=== PATIENT | male | born 1960 | race Caucasian/White ===

== ENCOUNTER 2022-04-27 19:19 | Emergency (ER) | payer OTHER ==
[~2022-04-27] VITALS: Ht 167.6 cm; Wt 81.6 kg
[~2022-04-27 19:19] MED LIST: APIX5TAB PO; ASPI-1197 PO; ATOR40TA71 PO; CILO50TA2 PO; CLOP75TA32 PO; DULO60CA64 PO; FENO48TA10 PO; INSLAN SQ; METF-444 PO; METO25 PO; OMEP-420 PO; PREG200C28 PO
[2022-04-27 19:56] LABS: APPEARANCE,URINE CLEAR (CLEAR); BILIRUBIN,URINE NEGATIVE (NEGATIVE); COLOR,URINE COLORLESS (YELLOW); GLUCOSE, URINE (UA) >=1000 mg/dL (NEGATIVE); KETONES,URINE NEGATIVE (NEGATIVE); LEUKOCYTE ESTERASE ,URINE 250 Leu/uL (NEGATIVE); NITRATE,URINE NEGATIVE (NEGATIVE); OCCULT BLOOD,URINE NEGATIVE (NEGATIVE); PH,URINE 5.5 (5.0-8.0); PROTEIN,URINE NEGATIVE (NEGATIVE); UROBILINOGEN,URINE 0.2 mg/dL (0.2-1.0)
[2022-04-27 19:58] LABS: BACTERIA,URINE RARE /HPF (None Seen)
[2022-04-27 20:04] LABS: BASOPHILS % (AUTO) 0.4 % (0.0-5.0); EOSINOPHILS % (AUTO) 0.9 % (0.0-8.0); HEMATOCRIT 40.4 % (42-54); LYMPHOCYTES % (AUTO) 23.5 % (21.0-51.0); MEAN CORPUSCULAR HEMOGLOBIN 27.6 pg (27.0-33.0); MEAN CORPUSCULAR HGB CONC 32.9 g/dL (32.0-36.0); MEAN CORPUSCULAR VOLUME 83.8 fL (79-99); MONOCYTES % (AUTO) 7.7 % (3.0-13.0); PLATELET COUNT (AUTO) 348 K/uL (130-400); RED BLOOD CELL COUNT(AUTO) 4.82 MIL/uL (4.50-6.20); WHITE BLOOD COUNT (AUTO) 13.1 K/uL (4.8-10.8)
[2022-04-27 20:22] LABS: ALBUMIN 3.4 g/dL (3.5-5.0); CREATININE 1.5 mg/dL (0.5-1.5); POTASSIUM 4.1 mmol/L (3.5-5.1); TOTAL PROTEIN, SERUM 7.5 g/dL (6.0-8.3)
[2022-04-27] MEDS ORDERED: 0.9%NACL 1000ML 2,000 ML IV ONE (20:30)
[2022-04-27] MEDS ORDERED: INSULIN HUMULIN R 100 UNIT/ML 3ML IV ONE (21:00)
[2022-04-27] MEDS ORDERED: CEFTRIAXONE 1G VIAL IVP ONE (22:30)
[2022-04-27] MEDS ORDERED: CEPH500B PO (22:33)
[2022-04-27 22:45] VITALS: BP 107/76
== END 2022-04-27 22:46 | disposition home or self-care (01) ==
LOC: EDH 19:19
DX: E11.65 Type 2 diabetes mellitus with hyperglycemia (principal); N39.0 Urinary tract infection, site not specified; E86.9 Volume depletion, unspecified; E78.00 Pure hypercholesterolemia, unspecified; I11.9 Hypertensive heart disease without heart failure; I48.91 Unspecified atrial fibrillation; Z79.899 Other long term (current) drug therapy; Z79.84 Long term (current) use of oral hypoglycemic drugs; Z79.82 Long term (current) use of aspirin; Z98.890 Other specified postprocedural states
CPT/HCPCS: 99284; 96374; 96361; 96375; 80053; 85025; 87088; 82948; 81001; 36415; J1815; J7030; J0696

== ENCOUNTER 2022-06-14 22:07 | Inpatient (IN) | payer OTHER ==
[~2022-06-14] VITALS: Ht 167.6 cm; Wt 75.4 kg
[~2022-06-14 22:07] MED LIST changes: +CEPH500B PO
[2022-06-14] MEDS ORDERED: VANCOMYCIN 1G/250ML KIT 250 ML IV ONE (22:26)
[2022-06-14] MEDS: CLINDAMYCIN IVPB 600MG/50ML 50 ML IV SCH ×2 (22:28→22:30)
[2022-06-14] MEDS ORDERED: MORPHINE 4 MG SYG IVP ONE ×2 (22:30)
[2022-06-14] MEDS ORDERED: CLINDAMYCIN IVPB 600MG/50ML 50 ML IV SCH (22:30)
[2022-06-14] MEDS ORDERED: VANCOMYCIN 1G VIAL IVPB ONE ×2 (22:30)
[2022-06-14] MEDS ORDERED: ONDANSETRON 4MG INJ IVP ONE ×2 (22:30)
[2022-06-14 22:32] LABS: BASOPHILS % (AUTO) 0.2 % (0.0-5.0); HEMATOCRIT 37.5 % (42-54); LYMPHOCYTES % (AUTO) 2.9 % (21.0-51.0); MEAN CORPUSCULAR HGB CONC 29.9 g/dL (32.0-36.0); MONOCYTES % (AUTO) 6.9 % (3.0-13.0); NEUTROPHILS % (AUTO) 89.1 % (40.0-77.0); PLATELET COUNT (AUTO) 302 K/uL (130-400); RED BLOOD CELL COUNT(AUTO) 4.31 MIL/uL (4.50-6.20); RED CELL DISTRIBUTION WIDTH 14.6 % (11.0-15.5); WHITE BLOOD COUNT (AUTO) 27.5 K/uL (4.8-10.8)
[2022-06-14 22:55] LABS: CREATININE 1.6 mg/dL (0.5-1.5); POTASSIUM 3.7 mmol/L (3.5-5.1)
[2022-06-14 23:00] LABS: ALBUMIN 2.7 g/dL (3.5-5.0); TOTAL PROTEIN, SERUM 6.5 g/dL (6.0-8.3)
[2022-06-14 23:02] LABS: APPEARANCE,URINE CLEAR (CLEAR); BILIRUBIN,URINE NEGATIVE (NEGATIVE); COLOR,URINE LIGHT-YELLOW (YELLOW); GLUCOSE, URINE (UA) >=1000 mg/dL (NEGATIVE); KETONES,URINE 150 mg/dL (NEGATIVE); LEUKOCYTE ESTERASE ,URINE NEGATIVE Leu/uL (NEGATIVE); NITRATE,URINE NEGATIVE (NEGATIVE); OCCULT BLOOD,URINE NEGATIVE (NEGATIVE); PROTEIN,URINE 20 mg/dL (NEGATIVE); UROBILINOGEN,URINE 0.2 mg/dL (0.2-1.0)
[2022-06-14 23:19] LABS: BACTERIA,URINE Rare /HPF (None Seen); RBC,URINE 0-1 /HPF (0-1); WBC,URINE 0-1 /HPF (0-1)
[2022-06-14 23:20] LABS: SQUAMOUS EPITHELIAL CELL,UR Few /HPF (0-2)
[2022-06-14 23:21] LABS: MUCUS,URINE Few LPF (None Seen)
[2022-06-14] MEDS ORDERED: 0.9% NACL 500ML IV.SOLN 500 ML IV SCH (23:30)
[2022-06-14] MEDS: 0.9%NACL 1000ML 1,000 ML IV SCH (23:34)
[2022-06-14 23:50] LABS: ABG HCO3 9.5 mmol/L (21.0-28.0); ABG OXYGEN SATURATION 91.7 % (95.0-99.0); ABG PCO2 23 mmHg (35-48)
[2022-06-15] VITALS (20 sets, daily range): BP systolic 93–170; BP diastolic 50–88
[2022-06-15] MEDS ORDERED: VANCOMYCIN PROTOCOL PER PHARMACY IV PRN
[2022-06-15] MEDS ORDERED: ACETAMINOPHEN 325 MG TAB PO PRN
[2022-06-15] MEDS ORDERED: ONDANSETRON 4MG INJ IV PRN
[2022-06-15] MEDS ORDERED: NITROGLYCERIN 0.4 MG SL TAB SL PRN
[2022-06-15] MEDS ORDERED: HYDROCODONE/ACETAMINOPHEN 5/325 MG TAB PO PRN
[2022-06-15] MEDS ORDERED: 0.9%NACL 1000ML 1,914 ML IV ONE
[2022-06-15] MEDS ORDERED: DEXTROSE 50%-WATER 50 ML DISP.SYRIN IV PRN
[2022-06-15] MEDS ORDERED: GLUCAGON 1MG KIT 1 MG ML IM PRN
[2022-06-15 00:07] LABS: INR 0.96 (0.85-1.15); PROTHROMBIN TIME 10.5 SEC (9.6-11.6)
[2022-06-15 00:09] LABS: PARTIAL THROMBOPLASTIN TIME 38.2 SEC (26.3-35.5)
[2022-06-15] MEDS: CEFTRIAXONE 1G VIAL IV SCH (00:31)
[2022-06-15] MEDS: 0.9%NACL 1000ML 1,000 ML IV SCH ×4 (00:32→18:02)
[2022-06-15 01:52] LABS: CREATININE 1.5 mg/dL (0.5-1.5); POTASSIUM 3.7 mmol/L (3.5-5.1)
[2022-06-15] MEDS: INSULIN HUMULIN R 100 UNIT/ML 3ML SQ SCH ×5 (01:53→20:59)
[2022-06-15] MEDS ORDERED: 0.9%NACL 1000ML 1,000 ML IV SCH ×2 (02:30→05:00)
[2022-06-15] MEDS ORDERED: SODIUM BICARB 8.4% 50ML SYRINGE IVP SCH ×2 (03:30→05:00)
[2022-06-15] MEDS ORDERED: SODIUM BICARB 50MEQ 50ML VIAL 50 ML ONE ×2 (03:32→04:46)
[2022-06-15 06:06] LABS: BASOPHILS % (AUTO) 0.2 % (0.0-5.0); EOSINOPHILS % (AUTO) 0.6 % (0.0-8.0); HEMATOCRIT 30.2 % (42-54); LYMPHOCYTES % (AUTO) 6.5 % (21.0-51.0); MEAN CORPUSCULAR HEMOGLOBIN 26.3 pg (27.0-33.0); MEAN CORPUSCULAR HGB CONC 30.8 g/dL (32.0-36.0); MEAN CORPUSCULAR VOLUME 85.3 fL (79-99); MONOCYTES % (AUTO) 9.1 % (3.0-13.0); NEUTROPHILS % (AUTO) 82.8 % (40.0-77.0); PLATELET COUNT (AUTO) 276 K/uL (130-400); RED BLOOD CELL COUNT(AUTO) 3.54 MIL/uL (4.50-6.20); RED CELL DISTRIBUTION WIDTH 14.6 % (11.0-15.5); WHITE BLOOD COUNT (AUTO) 22.8 K/uL (4.8-10.8)
[2022-06-15 06:25] LABS: CREATININE 1.3 mg/dL (0.5-1.5); MAGNESIUM 1.6 mg/dL (1.80-2.40); POTASSIUM 3.3 mmol/L (3.5-5.1); TOTAL PROTEIN, SERUM 5.7 g/dL (6.0-8.3)
[2022-06-15] MEDS ORDERED: HEPARIN 5,000 UNIT VIAL SQ SCH (09:00)
[2022-06-15] MEDS: FAMOTIDINE 20MG TAB PO SCH ×2 (09:28→21:12)
[2022-06-15] MEDS: HYDROCODONE/ACETAMINOPHEN 5/325 MG TAB PO PRN ×2 (09:28→14:18)
[2022-06-15] MEDS ORDERED: VANCOMYCIN 750MG VIAL IVPB SCH (12:30)
[2022-06-15] MEDS ORDERED: 0.9% NACL 250ML 250 ML IV SCH (12:30)
[2022-06-15] MEDS ORDERED: LIDOCAINE HCL-MPF 1% 2ML VIAL IV PRN (13:00)
[2022-06-15] MEDS: POTASSIUM CHLORIDE 10% ELIXIR 20 MEQ/15 ML UDCUP PO PRN ×2 (14:17→18:01)
[2022-06-15] MEDS: CLINDAMYCIN IVPB 600MG/50ML 50 ML IV SCH ×2 (14:18→23:47)
[2022-06-15] MEDS ORDERED: CLOPIDOGREL 300MG TAB PO ONE (18:00)
[2022-06-15] MEDS: MAGNESIUM 2GM PREMIX 50ML 50 ML IV PRN (18:02)
[2022-06-15] MEDS: SODIUM HYPOCHLORITE 0.25% [HALF STRENGTH] 473 ML TOPICAL SOLN TP SCH (21:00)
[2022-06-15] MEDS: VANCOMYCIN 750MG VIAL IVPB SCH (21:12)
[2022-06-15] MEDS ORDERED: METOPROLOL TARTRATE 1 MG/ML 5ML VIAL IV ONE ×2 (22:25→22:30)
[2022-06-15] MEDS ORDERED: 0.9% NACL 500ML IV.SOLN 500 ML IV SCH (22:30)
[2022-06-15] MEDS ORDERED: DILTIAZEM 50MG VIAL IV ONE ×2 (22:42→23:49)
[2022-06-15] MEDS ORDERED: CALCIUM GLUC 1GM 1 GM in 0.9%NACL 100ML 100 ML IV SCH (23:00)
[2022-06-15] MEDS ORDERED: DILTIAZEM 25MG INJ IVP ONE ×2 (23:00)
[2022-06-15] MEDS ORDERED: CALCIUM GLUC 1GM/10ML VIAL ONE (23:02)
[2022-06-15 23:27] LABS: POTASSIUM 3.7 mmol/L (3.5-5.1)
[2022-06-15] MEDS ORDERED: DILTIAZEM 125 MG/25 ML INJ 125 MG in 0.9%NACL 100ML 100 ML IV SCH (23:30)
[2022-06-16] VITALS (98 sets, daily range): BP systolic 67–200; BP diastolic 34–123
[2022-06-16] MEDS ORDERED: KCL 20 MEQ ERTAB PO ONE
[2022-06-16] MEDS: CEFTRIAXONE 1G VIAL IV SCH (00:04)
[2022-06-16] MEDS: 0.9%NACL 1000ML 1,000 ML IV SCH ×2 (00:14→16:00)
[2022-06-16] MEDS ORDERED: PHENYLEPHRINE HCL 10 MG/ML 1ML VIAL IV ONE ×3 (03:23→06:34)
[2022-06-16] MEDS ORDERED: PHENYLEPHRINE HCL 10 MG in 0.9% NACL 250ML 250 ML IV PRN (03:30)
[2022-06-16] MEDS ORDERED: 0.9% NACL 500ML IV.SOLN 500 ML IV SCH (03:30)
[2022-06-16] MEDS ORDERED: AMIODARONE 150MG VIAL 150 MG in DEXTROSE 5%-WATER 100 ML IV SCH (04:00)
[2022-06-16 04:21] LABS: BASOPHILS % (AUTO) 0.3 % (0.0-5.0); EOSINOPHILS % (AUTO) 0.1 % (0.0-8.0); HEMATOCRIT 34.6 % (42-54); LYMPHOCYTES % (AUTO) 4.6 % (21.0-51.0); MEAN CORPUSCULAR HEMOGLOBIN 26.1 pg (27.0-33.0); MEAN CORPUSCULAR HGB CONC 29.8 g/dL (32.0-36.0); MEAN CORPUSCULAR VOLUME 87.8 fL (79-99); MONOCYTES % (AUTO) 7.4 % (3.0-13.0); NEUTROPHILS % (AUTO) 86.8 % (40.0-77.0); PLATELET COUNT (AUTO) 292 K/uL (130-400); RED BLOOD CELL COUNT(AUTO) 3.94 MIL/uL (4.50-6.20); RED CELL DISTRIBUTION WIDTH 15.2 % (11.0-15.5); WHITE BLOOD COUNT (AUTO) 23.9 K/uL (4.8-10.8)
[2022-06-16] MEDS ORDERED: ALBUMIN (HUMAN) 25% 100 ML IV ONE (04:21)
[2022-06-16] MEDS: ACETAMINOPHEN 325 MG TAB PO PRN (04:34)
[2022-06-16 04:50] LABS: POTASSIUM 4.1 mmol/L (3.5-5.1); TOTAL PROTEIN, SERUM 6.5 g/dL (6.0-8.3)
[2022-06-16] MEDS: HYDROCODONE/ACETAMINOPHEN 5/325 MG TAB PO PRN ×2 (05:37→08:12)
[2022-06-16] MEDS: CLINDAMYCIN IVPB 600MG/50ML 50 ML IV SCH ×3 (05:42→22:46)
[2022-06-16] MEDS: METOPROLOL TARTRATE 1 MG/ML 5ML VIAL IV PRN (05:46)
[2022-06-16] MEDS: INSULIN HUMULIN R 100 UNIT/ML 3ML SQ SCH ×4 (06:40→21:06)
[2022-06-16] MEDS ORDERED: ALBUMIN (HUMAN) 25% 100 ML IV SCH (07:25)
[2022-06-16] MEDS: METOPROLOL TARTRATE 25 MG TAB PO SCH ×2 (08:11→20:38)
[2022-06-16] MEDS: FAMOTIDINE 20MG TAB PO SCH ×2 (08:11→20:38)
[2022-06-16] MEDS: CLOPIDOGREL 75MG TAB PO SCH (08:11)
[2022-06-16] MEDS: ASPIRIN 81 MG EC TAB PO SCH (08:11)
[2022-06-16] MEDS ORDERED: ENOXAPARIN SODIUM 80 MG/0.8 ML SQ SCH (08:30)
[2022-06-16] MEDS: SODIUM HYPOCHLORITE 0.25% [HALF STRENGTH] 473 ML TOPICAL SOLN TP SCH (09:00)
[2022-06-16] MEDS: VANCOMYCIN 750MG VIAL IVPB SCH ×2 (09:19→20:37)
[2022-06-16] MEDS: ENOXAPARIN SODIUM 80 MG/0.8 ML SQ SCH ×2 (09:19→20:39)
[2022-06-16] MEDS ORDERED: LACTATED RINGERS 1000ML 1,914 ML IV SCH (11:30)
[2022-06-16] MEDS ORDERED: NOREPINEPHRIN 4MG/NS 250ML 250 ML IV ONE (12:10)
[2022-06-16] MEDS ORDERED: DEXMEDETOMIDINE 400MCG/NS100ML IV ONE (12:37)
[2022-06-16] MEDS ORDERED: IPRATROPIUM 0.5 MG/2.5 ML INH IH ONE (12:39)
[2022-06-16] MEDS ORDERED: AMIODARONE 900MG VIAL 360 MG in DEXTROSE 5%-WATER 200 ML IV SCH (13:00)
[2022-06-16] MEDS ORDERED: AMIODARONE 900MG VIAL 150 MG in DEXTROSE 5%-WATER 100 ML IV SCH (13:00)
[2022-06-16 13:02] LABS: ABG BASE EXCESS -25.8 mmol/L (-2.0-3.0); ABG HCO3 8.5 mmol/L (21.0-28.0); ABG OXYGEN SATURATION 98.6 % (95.0-99.0); ABG PCO2 55 mmHg (35-48)
[2022-06-16] MEDS ORDERED: SODIUM BICARB 50MEQ 50ML VIAL 300 ML ONE (13:03)
[2022-06-16] MEDS ORDERED: FENTANYL 2500MCG+NS 250ML 250 ML IV ONE (13:31)
[2022-06-16 15:31] LABS: ABG BASE EXCESS -15.4 mmol/L (-2.0-3.0); ABG HCO3 13.9 mmol/L (21.0-28.0); ABG OXYGEN SATURATION 97.2 % (95.0-99.0); ABG PCO2 47 mmHg (35-48)
[2022-06-16] MEDS ORDERED: SODIUM BICARB 50MEQ 50ML VIAL 100 ML ONE (15:46)
[2022-06-16] MEDS ORDERED: HONEY 1 APPL/ML TUBE TP SCH (16:00)
[2022-06-16 16:17] LABS: PROTHROMBIN TIME 10.9 SEC (9.6-11.6)
[2022-06-16 16:18] LABS: PARTIAL THROMBOPLASTIN TIME 32.9 SEC (26.3-35.5)
[2022-06-16] MEDS ORDERED: SODIUM BICARB 50MEQ 50ML VIAL IV ONE ×2 (16:30→17:30)
[2022-06-16] MEDS ORDERED: MIDAZOLAM 100MG-0.9% NS 100ML 100ML BAG IV PRN (18:00)
[2022-06-16] MEDS ORDERED: AMIODARONE 900MG VIAL 540 MG in DEXTROSE 5%-WATER 300 ML IV SCH (18:00)
[2022-06-16] MEDS ORDERED: PHENYLEPHRINE HCL 100 MG in 0.9% NACL 250ML 250 ML IV SCH (20:00)
[2022-06-16] MEDS ORDERED: 0.9% NACL 250ML 250 ML ONE (20:14)
[2022-06-16] MEDS: HONEY 1 APPL/ML TUBE TP SCH (20:39)
[2022-06-16 20:40] LABS: CREATININE 1.4 mg/dL (0.5-1.5); POTASSIUM 3.9 mmol/L (3.5-5.1)
[2022-06-16] MEDS: VASOPRESSIN 20 UNITS in 0.9%NACL 100ML 100 ML IV SCH (20:43)
[2022-06-17] VITALS (95 sets, daily range): BP systolic 95–138; BP diastolic 46–79
[2022-06-17] MEDS: CEFTRIAXONE 1G VIAL IV SCH (00:01)
[2022-06-17] MEDS ORDERED: FENTANYL 2500MCG+NS 250ML 250 ML IV ONE ×2 (03:18→21:55)
[2022-06-17] MEDS: VASOPRESSIN 20 UNITS in 0.9%NACL 100ML 100 ML IV SCH ×2 (04:08→12:52)
[2022-06-17 04:09] LABS: BASOPHILS % (AUTO) 0.3 % (0.0-5.0); EOSINOPHILS % (AUTO) 0.1 % (0.0-8.0); HEMATOCRIT 25.1 % (42-54); LYMPHOCYTES % (AUTO) 4.3 % (21.0-51.0); MEAN CORPUSCULAR HEMOGLOBIN 26.1 pg (27.0-33.0); MEAN CORPUSCULAR HGB CONC 29.9 g/dL (32.0-36.0); MEAN CORPUSCULAR VOLUME 87.5 fL (79-99); MONOCYTES % (AUTO) 8.7 % (3.0-13.0); NEUTROPHILS % (AUTO) 85.6 % (40.0-77.0); NUCLEATED RED BLOOD CELLS 0.1 % (0.0-0.19); PLATELET COUNT (AUTO) 259 K/uL (130-400); RED BLOOD CELL COUNT(AUTO) 2.87 MIL/uL (4.50-6.20); RED CELL DISTRIBUTION WIDTH 15.4 % (11.0-15.5)
[2022-06-17 04:28] LABS: ALBUMIN 1.6 g/dL (3.5-5.0); CREATININE 1.4 mg/dL (0.5-1.5); POTASSIUM 3.5 mmol/L (3.5-5.1); TOTAL PROTEIN, SERUM 5.2 g/dL (6.0-8.3)
[2022-06-17] MEDS: POTASSIUM CHLORIDE 20MEQ/100ML 100 ML IV PRN (05:10)
[2022-06-17] MEDS ORDERED: SODIUM BICARB 8.4% 50ML SYRINGE IVP SCH (06:00)
[2022-06-17] MEDS: CLINDAMYCIN IVPB 600MG/50ML 50 ML IV SCH ×3 (06:28→21:57)
[2022-06-17] MEDS: INSULIN HUMULIN R 100 UNIT/ML 3ML SQ SCH ×4 (06:38→21:30)
[2022-06-17 07:57] LABS: ABG BASE EXCESS -9.6 mmol/L (-2.0-3.0); ABG HCO3 14.7 mmol/L (21.0-28.0); ABG OXYGEN SATURATION 98.6 % (95.0-99.0); ABG PCO2 27 mmHg (35-48)
[2022-06-17] MEDS ORDERED: HYDROCORTISONE SOD SUCCINATE 100 MG/2 ML VIAL IV SCH (08:30)
[2022-06-17] MEDS ORDERED: PHARMACY COMMUNICATION MISC SCH (08:30)
[2022-06-17] MEDS: SODIUM BICARB 50MEQ 50ML VIAL 150 MEQ in DEXTROSE 5%-WATER 1,000 ML IV SCH ×2 (08:52→21:26)
[2022-06-17] MEDS: VANCOMYCIN 750MG VIAL IVPB SCH ×2 (08:52→21:28)
[2022-06-17] MEDS: FAMOTIDINE 20MG TAB PO SCH ×2 (08:53→21:29)
[2022-06-17] MEDS: ASPIRIN 81 MG EC TAB PO SCH (08:53)
[2022-06-17] MEDS: CLOPIDOGREL 75MG TAB PO SCH (09:02)
[2022-06-17] MEDS: ENOXAPARIN SODIUM 80 MG/0.8 ML SQ SCH ×2 (09:02→22:57)
[2022-06-17] MEDS: MIDAZOLAM 100MG-0.9% NS 100ML 100 ML IV SCH (09:03)
[2022-06-17 09:57] LABS: HEMATOCRIT 26.2 % (42-54)
[2022-06-17 10:36] LABS: CREATININE 1.4 mg/dL (0.5-1.5)
[2022-06-17] MEDS: IPRATROPIUM 0.5 MG/2.5 ML INH IH SCH ×3 (11:22→23:53)
[2022-06-17] MEDS: SODIUM CHLORIDE 3% FOR INHALATION 4 ML/AMP VIAL.NEB IH SCH ×3 (11:22→23:53)
[2022-06-17] MEDS: HONEY 1 APPL/ML TUBE TP SCH (11:23)
[2022-06-17] MEDS: HYDROCORTISONE SOD SUCCINATE 100 MG/2 ML VIAL IV SCH ×2 (12:27→17:23)
[2022-06-17] MEDS ORDERED: AMIODARONE 900MG VIAL 360 MG in DEXTROSE 5%-WATER 200 ML IV SCH (13:30)
[2022-06-17] MEDS ORDERED: AMIODARONE 900MG VIAL 150 MG in DEXTROSE 5%-WATER 100 ML IV SCH (13:30)
[2022-06-17 14:31] LABS: CREATININE 1.6 mg/dL (0.5-1.5); POTASSIUM 4.2 mmol/L (3.5-5.1)
[2022-06-17] MEDS: DIGOXIN 250 MCG/ML 2ML AMP IV SCH (16:41)
[2022-06-17] MEDS ORDERED: IOHEXOL 350 MG/ML 100ML INFUS..BTL IV ONE (20:09)
[2022-06-17] MEDS: AMIODARONE 900MG VIAL 540 MG in DEXTROSE 5%-WATER 300 ML IV SCH (22:00)
[2022-06-18] VITALS (73 sets, daily range): BP systolic 84–155; BP diastolic 51–103
[2022-06-18] MEDS: CEFTRIAXONE 1G VIAL IV SCH (00:48)
[2022-06-18] MEDS: HYDROCORTISONE SOD SUCCINATE 100 MG/2 ML VIAL IV SCH ×4 (00:49→17:08)
[2022-06-18] MEDS: DIGOXIN 250 MCG/ML 2ML AMP IV SCH ×3 (00:51→15:09)
[2022-06-18 04:17] LABS: ABG BASE EXCESS -0.2 mmol/L (-2.0-3.0); ABG HCO3 22.7 mmol/L (21.0-28.0); ABG OXYGEN SATURATION 99.3 % (95.0-99.0); ABG PCO2 33 mmHg (35-48)
[2022-06-18 05:26] LABS: BASOPHILS % (AUTO) 0.2 % (0.0-5.0); HEMATOCRIT 27.2 % (42-54); LYMPHOCYTES % (AUTO) 4.5 % (21.0-51.0); MEAN CORPUSCULAR HEMOGLOBIN 26.3 pg (27.0-33.0); MEAN CORPUSCULAR HGB CONC 31.3 g/dL (32.0-36.0); MEAN CORPUSCULAR VOLUME 84.2 fL (79-99); MONOCYTES % (AUTO) 5.6 % (3.0-13.0); NEUTROPHILS % (AUTO) 88.9 % (40.0-77.0); PLATELET COUNT (AUTO) 280 K/uL (130-400); RED BLOOD CELL COUNT(AUTO) 3.23 MIL/uL (4.50-6.20); WHITE BLOOD COUNT (AUTO) 17.3 K/uL (4.8-10.8)
[2022-06-18 05:58] LABS: ALBUMIN 1.7 g/dL (3.5-5.0); CREATININE 1.6 mg/dL (0.5-1.5); POTASSIUM 3.4 mmol/L (3.5-5.1); TOTAL PROTEIN, SERUM 5.6 g/dL (6.0-8.3)
[2022-06-18] MEDS: SODIUM CHLORIDE 3% FOR INHALATION 4 ML/AMP VIAL.NEB IH SCH ×3 (06:00→23:59)
[2022-06-18] MEDS: IPRATROPIUM 0.5 MG/2.5 ML INH IH SCH ×2 (06:00→18:32)
[2022-06-18 06:01] LABS: B-TYPE NATRIURETIC PEPTIDE 779 pg/mL (0-100)
[2022-06-18] MEDS: POTASSIUM CHLORIDE 10% ELIXIR 20 MEQ/15 ML UDCUP PO PRN ×2 (06:35→13:54)
[2022-06-18] MEDS: INSULIN HUMULIN R 100 UNIT/ML 3ML SQ SCH ×4 (06:36→20:08)
[2022-06-18] MEDS: ACETAMINOPHEN 325 MG TAB PO PRN (06:36)
[2022-06-18] MEDS: CLINDAMYCIN IVPB 600MG/50ML 50 ML IV SCH ×3 (06:37→22:53)
[2022-06-18] MEDS: ENOXAPARIN SODIUM 80 MG/0.8 ML SQ SCH (07:25)
[2022-06-18] MEDS: CLOPIDOGREL 75MG TAB PO SCH (07:25)
[2022-06-18] MEDS: ASPIRIN 81 MG EC TAB PO SCH (07:43)
[2022-06-18] MEDS: OSELTAMIVIR PHOSPHATE 75 MG CAP PO SCH ×2 (07:43→20:07)
[2022-06-18] MEDS: DEXTROSE 5%-LACTATED RINGERS 1,000 ML IV SCH ×2 (07:43→16:26)
[2022-06-18] MEDS: FAMOTIDINE 20MG TAB PO SCH ×2 (07:44→20:07)
[2022-06-18] MEDS: HONEY 1 APPL/ML TUBE TP SCH (07:45)
[2022-06-18] MEDS: VANCOMYCIN 750MG VIAL IVPB SCH ×2 (07:50→20:07)
[2022-06-18] MEDS: AMIODARONE 900MG VIAL 540 MG in DEXTROSE 5%-WATER 300 ML IV SCH (08:07)
[2022-06-18] MEDS ORDERED: EPINEPHRINE PF 1MG (1:1,000) 1 MG/ML AMP ONE (08:51)
[2022-06-18] MEDS ORDERED: VASOPRESSIN 20 UNITS/ML 1ML VIAL ONE (08:51)
[2022-06-18] MEDS ORDERED: SODIUM BICARB 50MEQ 50ML VIAL 200 ML ONE (08:51)
[2022-06-18] MEDS ORDERED: ALBUMIN (HUMAN) 5% 500 ML IV ONE (08:52)
[2022-06-18] MEDS ORDERED: ROCURONIUM 10MG/1ML SYR 10 MG/ML ML ONE ×2 (10:56→12:46)
[2022-06-18] MEDS ORDERED: FENTANYL CITRATE PF 50 MCG/1 ML 2ML VIAL ONE (10:56)
[2022-06-18] MEDS ORDERED: PROPOFOL 10 MG/ML 20ML VIAL IV ONE (10:56)
[2022-06-18] MEDS ORDERED: MIDAZOLAM HCL 1 MG/ML 2ML VIAL ONE (10:56)
[2022-06-18 13:03] LABS: ABG BASE EXCESS 6.3 mmol/L (-2.0-3.0); ABG HCO3 30.7 mmol/L (21.0-28.0); ABG OXYGEN SATURATION 92.8 % (95.0-99.0); ABG PCO2 44 mmHg (35-48)
[2022-06-18] MEDS: MIDAZOLAM 100MG-0.9% NS 100ML 100 ML IV SCH (13:32)
[2022-06-18] MEDS: POTASSIUM CHLORIDE 20MEQ/100ML 100 ML IV PRN ×2 (13:46→15:00)
[2022-06-18 16:51] LABS: HEMATOCRIT 27.8 % (42-54); MEAN CORPUSCULAR HEMOGLOBIN 26.2 pg (27.0-33.0); MEAN CORPUSCULAR HGB CONC 30.6 g/dL (32.0-36.0); MEAN CORPUSCULAR VOLUME 85.5 fL (79-99); PLATELET COUNT (AUTO) 299 K/uL (130-400); RED BLOOD CELL COUNT(AUTO) 3.25 MIL/uL (4.50-6.20); RED CELL DISTRIBUTION WIDTH 15.2 % (11.0-15.5); WHITE BLOOD COUNT (AUTO) 18.1 K/uL (4.8-10.8)
[2022-06-18 16:59] LABS: CREATININE 1.5 mg/dL (0.5-1.5); POTASSIUM 4.1 mmol/L (3.5-5.1)
[2022-06-18] MEDS: VASOPRESSIN 20 UNITS in 0.9%NACL 100ML 100 ML IV SCH (17:04)
[2022-06-18] MEDS: FENTANYL 2500MCG+NS 250ML IV.SOLN IV SCH (17:08)
[2022-06-18 17:18] LABS: BAND NEUTROPHILS % (MANUAL) 1 % (0-2); LYMPHOCYTES % (MANUAL) 1 % (22-44); MAN.DIFF COMMENT-IMPRESSION MANUAL DIFFERENTIAL; MONOCYTES % (MANUAL) 6 % (2-9); SEGMENTED NEUTROPHILS % 92 % (40-70)
[2022-06-19] VITALS (93 sets, daily range): BP systolic 59–167; BP diastolic 27–119
[2022-06-19] MEDS: HYDROCORTISONE SOD SUCCINATE 100 MG/2 ML VIAL IV SCH ×5 (00:21→23:49)
[2022-06-19] MEDS: CEFTRIAXONE 1G VIAL IV SCH ×2 (00:21→23:49)
[2022-06-19] MEDS: DEXTROSE 5%-LACTATED RINGERS 1,000 ML IV SCH ×3 (00:30→23:49)
[2022-06-19] MEDS ORDERED: IOHEXOL 350 MG/ML 100ML INFUS..BTL IV ONE (02:30)
[2022-06-19 03:52] LABS: ABG BASE EXCESS 6.5 mmol/L (-2.0-3.0); ABG HCO3 29.2 mmol/L (21.0-28.0); ABG OXYGEN SATURATION 98.4 % (95.0-99.0); ABG PCO2 35 mmHg (35-48)
[2022-06-19 04:19] LABS: BASOPHILS % (AUTO) 0.1 % (0.0-5.0); HEMATOCRIT 28.5 % (42-54); MEAN CORPUSCULAR HEMOGLOBIN 25.9 pg (27.0-33.0); MEAN CORPUSCULAR HGB CONC 31.2 g/dL (32.0-36.0); MEAN CORPUSCULAR VOLUME 83.1 fL (79-99); MONOCYTES % (AUTO) 6.7 % (3.0-13.0); PLATELET COUNT (AUTO) 303 K/uL (130-400); RED BLOOD CELL COUNT(AUTO) 3.43 MIL/uL (4.50-6.20); RED CELL DISTRIBUTION WIDTH 14.7 % (11.0-15.5); WHITE BLOOD COUNT (AUTO) 14.8 K/uL (4.8-10.8)
[2022-06-19] MEDS: POTASSIUM CHLORIDE 20MEQ/100ML 100 ML IV PRN ×4 (04:29→17:49)
[2022-06-19] MEDS: POTASSIUM CHLORIDE 10% ELIXIR 20 MEQ/15 ML UDCUP PO PRN ×8 (04:46→22:25)
[2022-06-19] MEDS: CLINDAMYCIN IVPB 600MG/50ML 50 ML IV SCH ×3 (05:38→22:26)
[2022-06-19] MEDS: INSULIN HUMULIN R 100 UNIT/ML 3ML SQ SCH ×4 (05:39→20:53)
[2022-06-19 05:40] LABS: ALBUMIN 1.8 g/dL (3.5-5.0); CREATININE 1.3 mg/dL (0.5-1.5); TOTAL PROTEIN, SERUM 5.8 g/dL (6.0-8.3)
[2022-06-19 05:44] LABS: POTASSIUM 2.8 mmol/L (3.5-5.1)
[2022-06-19] MEDS: MIDAZOLAM 100MG-0.9% NS 100ML 100 ML IV SCH (06:24)
[2022-06-19] MEDS: IPRATROPIUM 0.5 MG/2.5 ML INH IH SCH ×5 (07:34→23:25)
[2022-06-19] MEDS: SODIUM CHLORIDE 3% FOR INHALATION 4 ML/AMP VIAL.NEB IH SCH ×4 (07:34→23:25)
[2022-06-19] MEDS: FAMOTIDINE 20MG TAB PO SCH ×2 (07:53→20:51)
[2022-06-19] MEDS: CLOPIDOGREL 75MG TAB PO SCH (07:53)
[2022-06-19] MEDS: OSELTAMIVIR PHOSPHATE 75 MG CAP PO SCH ×2 (07:53→20:51)
[2022-06-19] MEDS: FENTANYL 2500MCG+NS 250ML IV.SOLN IV SCH ×2 (07:53→22:27)
[2022-06-19] MEDS: ASPIRIN 81 MG EC TAB PO SCH (07:54)
[2022-06-19] MEDS: AMIODARONE 200 MG TABLET PO SCH ×2 (08:05→20:51)
[2022-06-19] MEDS: MIDODRINE HCL 5 MG TABLET PO SCH ×3 (09:12→20:51)
[2022-06-19] MEDS: BALSAM PERU/CASTOR OIL 60 GM TUBE TP SCH ×2 (09:44→20:52)
[2022-06-19] MEDS: VANCOMYCIN 1G/250ML KIT 250 ML IV SCH ×2 (09:54→20:52)
[2022-06-19] MEDS: DOCUSATE NA 100MG/10ML UDCUP PO SCH (10:58)
[2022-06-19] MEDS: ACETAMINOPHEN 325 MG/10.15ML UDCUP PO PRN (14:03)
[2022-06-19] MEDS: DIGOXIN 250 MCG/ML 2ML AMP IV SCH (15:29)
[2022-06-19] MEDS: VASOPRESSIN 20 UNITS in 0.9%NACL 100ML 100 ML IV SCH (16:29)
[2022-06-19] MEDS: HEPARIN 25,000 UNITS/250ML D5W 250 ML IV SCH (17:48)
[2022-06-19] MEDS ORDERED: HEPARIN 5,000 UNIT VIAL IV SCH (18:00)
[2022-06-19] MEDS ORDERED: 0.9% NACL 250ML 250 ML ONE (20:47)
[2022-06-20] VITALS (60 sets, daily range): BP systolic 76–194; BP diastolic 41–97
[2022-06-20] MEDS: POTASSIUM CHLORIDE 10% ELIXIR 20 MEQ/15 ML UDCUP PO PRN ×3 (01:19→06:47)
[2022-06-20] MEDS ORDERED: 0.9%NACL 1000ML 1,000 ML IV ONE (01:30)
[2022-06-20] MEDS: MIDAZOLAM 100MG-0.9% NS 100ML 100 ML IV SCH (02:35)
[2022-06-20 04:02] LABS: ABG BASE EXCESS 6.7 mmol/L (-2.0-3.0); ABG HCO3 30.7 mmol/L (21.0-28.0); ABG OXYGEN SATURATION 86.6 % (95.0-99.0); ABG PCO2 42 mmHg (35-48)
[2022-06-20] MEDS: HYDROCORTISONE SOD SUCCINATE 100 MG/2 ML VIAL IV SCH (05:39)
[2022-06-20] MEDS: CLINDAMYCIN IVPB 600MG/50ML 50 ML IV SCH ×3 (05:39→21:22)
[2022-06-20] MEDS: INSULIN HUMULIN R 100 UNIT/ML 3ML SQ SCH ×4 (05:40→21:20)
[2022-06-20 06:08] LABS: BASOPHILS % (AUTO) 0.2 % (0.0-5.0); HEMATOCRIT 28.5 % (42-54); LYMPHOCYTES % (AUTO) 6.9 % (21.0-51.0); MEAN CORPUSCULAR HEMOGLOBIN 26.3 pg (27.0-33.0); MEAN CORPUSCULAR VOLUME 79.8 fL (79-99); MONOCYTES % (AUTO) 6.1 % (3.0-13.0); PLATELET COUNT (AUTO) 341 K/uL (130-400); RED BLOOD CELL COUNT(AUTO) 3.57 MIL/uL (4.50-6.20); RED CELL DISTRIBUTION WIDTH 14.8 % (11.0-15.5); WHITE BLOOD COUNT (AUTO) 14.8 K/uL (4.8-10.8)
[2022-06-20 06:32] LABS: ALBUMIN 1.8 g/dL (3.5-5.0); POTASSIUM 3.8 mmol/L (3.5-5.1)
[2022-06-20] MEDS: SODIUM CHLORIDE 3% FOR INHALATION 4 ML/AMP VIAL.NEB IH SCH ×2 (06:35→11:44)
[2022-06-20] MEDS: IPRATROPIUM 0.5 MG/2.5 ML INH IH SCH ×4 (06:35→23:38)
[2022-06-20] MEDS ORDERED: DIAZEPAM 5 MG TABLET PO PRN (08:00)
[2022-06-20] MEDS: FAMOTIDINE 20MG TAB PO SCH ×2 (08:35→21:19)
[2022-06-20] MEDS: ASPIRIN 81 MG EC TAB PO SCH (08:35)
[2022-06-20] MEDS: AMIODARONE 200 MG TABLET PO SCH ×2 (08:35→21:18)
[2022-06-20] MEDS: VANCOMYCIN 1G/250ML KIT 250 ML IV SCH ×2 (08:36→21:16)
[2022-06-20] MEDS: OSELTAMIVIR PHOSPHATE 75 MG CAP PO SCH ×2 (08:36→21:17)
[2022-06-20] MEDS: MIDODRINE HCL 5 MG TABLET PO SCH ×3 (08:36→21:00)
[2022-06-20] MEDS: CLOPIDOGREL 75MG TAB PO SCH (08:36)
[2022-06-20] MEDS: KCL 20 MEQ ERTAB PO PRN ×2 (08:37→10:58)
[2022-06-20] MEDS: NICOTINE 21 MG/ 24 HR PATCH TD SCH (08:37)
[2022-06-20] MEDS: BALSAM PERU/CASTOR OIL 60 GM TUBE TP SCH ×2 (08:38→21:21)
[2022-06-20] MEDS: HEPARIN 25,000 UNITS/250ML D5W 250 ML IV SCH (10:01)
[2022-06-20] MEDS: LACTULOSE 20 GM/30 ML UDCUP PO PRN (10:59)
[2022-06-20] MEDS: DOCUSATE NA 100MG/10ML UDCUP PO SCH (11:00)
[2022-06-20 11:06] LABS: ABG BASE EXCESS 8.3 mmol/L (-2.0-3.0); ABG HCO3 33.2 mmol/L (21.0-28.0); ABG OXYGEN SATURATION 99.2 % (95.0-99.0); ABG PCO2 46 mmHg (35-48)
[2022-06-20] MEDS: DIAZEPAM 5 MG TABLET PO SCH ×2 (12:27→21:19)
[2022-06-20] MEDS: FENTANYL 2500MCG+NS 250ML IV.SOLN IV SCH ×2 (14:13→23:14)
[2022-06-20] MEDS: DIGOXIN 250 MCG/ML 2ML AMP IV SCH (15:23)
[2022-06-20] MEDS: DEXTROSE 5%-LACTATED RINGERS 1,000 ML IV SCH (16:08)
[2022-06-20] MEDS: DEXMEDETOMIDINE 400MCG/NS100ML IV SCH ×2 (17:13→23:13)
[2022-06-20] MEDS: SOLU-MEDROL 40MG VIAL IVP SCH (21:16)
[2022-06-20] MEDS ORDERED: HYDRALAZINE 20MG/ML VIAL ONE (22:52)
[2022-06-20] MEDS: CEFTRIAXONE 1G VIAL IV SCH (22:56)
[2022-06-20] MEDS ORDERED: LABETALOL 20MG VIAL IV PRN (23:00)
[2022-06-21] VITALS (45 sets, daily range): BP systolic 103–191; BP diastolic 53–94
[2022-06-21] MEDS: HYDRALAZINE 20MG/ML VIAL IV PRN ×2 (03:08→11:37)
[2022-06-21] MEDS: HEPARIN 25,000 UNITS/250ML D5W 250 ML IV SCH ×2 (03:14→19:34)
[2022-06-21 03:40] LABS: ABG HCO3 32.9 mmol/L (21.0-28.0); ABG OXYGEN SATURATION 97.1 % (95.0-99.0); ABG PCO2 46 mmHg (35-48)
[2022-06-21 04:08] LABS: BASOPHILS % (AUTO) 0.3 % (0.0-5.0); EOSINOPHILS % (AUTO) 0.2 % (0.0-8.0); HEMATOCRIT 30.9 % (42-54); LYMPHOCYTES % (AUTO) 8.5 % (21.0-51.0); MEAN CORPUSCULAR HEMOGLOBIN 26.3 pg (27.0-33.0); MEAN CORPUSCULAR HGB CONC 31.7 g/dL (32.0-36.0); MEAN CORPUSCULAR VOLUME 83.1 fL (79-99); NEUTROPHILS % (AUTO) 83.4 % (40.0-77.0); NUCLEATED RED BLOOD CELLS 0.1 % (0.0-0.19); PLATELET COUNT (AUTO) 383 K/uL (130-400); RED BLOOD CELL COUNT(AUTO) 3.72 MIL/uL (4.50-6.20); WHITE BLOOD COUNT (AUTO) 17.6 K/uL (4.8-10.8)
[2022-06-21] MEDS: DEXMEDETOMIDINE 400MCG/NS100ML IV SCH ×4 (04:14→20:43)
[2022-06-21] MEDS: DEXTROSE 5%-LACTATED RINGERS 1,000 ML IV SCH (04:15)
[2022-06-21 05:13] LABS: ALBUMIN 1.8 g/dL (3.5-5.0); CREATININE 0.8 mg/dL (0.5-1.5); DIGOXIN 0.91 ng/mL (0.50-2.00); MAGNESIUM 1.6 mg/dL (1.80-2.40); TOTAL PROTEIN, SERUM 6.2 g/dL (6.0-8.3)
[2022-06-21 05:32] LABS: CRP QUANTITATIVE 98.7 mg/L (0.00-9.0)
[2022-06-21] MEDS: CLINDAMYCIN IVPB 600MG/50ML 50 ML IV SCH ×3 (05:54→22:22)
[2022-06-21] MEDS: MAGNESIUM 2GM PREMIX 50ML 50 ML IV PRN (05:54)
[2022-06-21] MEDS: INSULIN HUMULIN R 100 UNIT/ML 3ML SQ SCH ×4 (06:03→21:44)
[2022-06-21] MEDS ORDERED: SODIUM CHLORIDE 3% FOR INHALATION 4 ML/AMP VIAL.NEB IH ONE ×2 (06:14→11:21)
[2022-06-21] MEDS: IPRATROPIUM 0.5 MG/2.5 ML INH IH SCH ×4 (06:39→23:10)
[2022-06-21] MEDS: DOCUSATE NA 100MG/10ML UDCUP PO SCH (07:37)
[2022-06-21] MEDS: MIDODRINE HCL 5 MG TABLET PO SCH (07:38)
[2022-06-21] MEDS: NICOTINE 21 MG/ 24 HR PATCH TD SCH (09:12)
[2022-06-21] MEDS: FAMOTIDINE 20MG TAB PO SCH ×2 (09:12→20:44)
[2022-06-21] MEDS: SOLU-MEDROL 40MG VIAL IVP SCH ×2 (09:12→20:43)
[2022-06-21] MEDS: VANCOMYCIN 1G/250ML KIT 250 ML IV SCH ×2 (09:12→21:04)
[2022-06-21] MEDS: CLOPIDOGREL 75MG TAB PO SCH (09:13)
[2022-06-21] MEDS: ASPIRIN 81 MG EC TAB PO SCH (09:13)
[2022-06-21] MEDS: AMIODARONE 200 MG TABLET PO SCH ×2 (09:13→20:44)
[2022-06-21] MEDS: METOPROLOL TARTRATE 25 MG TAB PO SCH ×2 (09:13→20:44)
[2022-06-21] MEDS: DIAZEPAM 5 MG TABLET PO SCH ×2 (09:13→20:44)
[2022-06-21] MEDS: OSELTAMIVIR PHOSPHATE 75 MG CAP PO SCH ×2 (09:13→20:44)
[2022-06-21] MEDS: BALSAM PERU/CASTOR OIL 60 GM TUBE TP SCH ×2 (09:14→21:05)
[2022-06-21] MEDS: INSULIN GLARGINE 100 UNITS/ML 10 ML VIAL SQ SCH ×2 (09:43→20:54)
[2022-06-21] MEDS: LACTATED RINGERS 1000ML 1,000 ML IV SCH ×2 (09:57→19:49)
[2022-06-21] MEDS: FENTANYL 2500MCG+NS 250ML IV.SOLN IV SCH (11:39)
[2022-06-21 14:39] LABS: INR 0.97 (0.85-1.15); PROTHROMBIN TIME 10.6 SEC (9.6-11.6)
[2022-06-21 14:40] LABS: PARTIAL THROMBOPLASTIN TIME 50.1 SEC (26.3-35.5)
[2022-06-21] MEDS: ACETAMINOPHEN 325 MG/10.15ML UDCUP PO PRN (16:07)
[2022-06-21 16:53] LABS: APPEARANCE,URINE CLEAR (CLEAR); BILIRUBIN,URINE NEGATIVE (NEGATIVE); COLOR,URINE LIGHT-YELLOW (YELLOW); GLUCOSE, URINE (UA) >=1000 mg/dL (NEGATIVE); KETONES,URINE 10 mg/dL (NEGATIVE); LEUKOCYTE ESTERASE ,URINE 25 Leu/uL (NEGATIVE); NITRATE,URINE NEGATIVE (NEGATIVE); OCCULT BLOOD,URINE LARGE (NEGATIVE); PH,URINE 6.5 (5.0-8.0); PROTEIN,URINE 20 mg/dL (NEGATIVE); UROBILINOGEN,URINE 0.2 mg/dL (0.2-1.0)
[2022-06-21 16:54] LABS: BACTERIA,URINE RARE /HPF (None Seen); MUCUS,URINE RARE LPF (None Seen); RBC,URINE 51-100 /HPF (0-1)
[2022-06-21 17:06] LABS: MAGNESIUM 2.1 mg/dL (1.80-2.40); POTASSIUM 3.8 mmol/L (3.5-5.1)
[2022-06-21 20:25] LABS: INR 0.98 (0.85-1.15); PROTHROMBIN TIME 10.7 SEC (9.6-11.6)
[2022-06-21 20:26] LABS: PARTIAL THROMBOPLASTIN TIME 38.7 SEC (26.3-35.5)
[2022-06-22] VITALS (30 sets, daily range): BP systolic 116–180; BP diastolic 51–87
[2022-06-22] MEDS: CEFTRIAXONE 1G VIAL IV SCH (00:23)
[2022-06-22] MEDS: FENTANYL 2500MCG+NS 250ML IV.SOLN IV SCH ×2 (00:24→20:17)
[2022-06-22] MEDS: DEXMEDETOMIDINE 400MCG/NS100ML IV SCH ×4 (00:53→18:18)
[2022-06-22] MEDS: ACETAMINOPHEN 325 MG/10.15ML UDCUP PO PRN ×2 (00:56→01:59)
[2022-06-22 02:33] LABS: BASOPHILS % (AUTO) 0.3 % (0.0-5.0); EOSINOPHILS % (AUTO) 0.2 % (0.0-8.0); LYMPHOCYTES % (AUTO) 4.5 % (21.0-51.0); MEAN CORPUSCULAR HEMOGLOBIN 25.9 pg (27.0-33.0); MEAN CORPUSCULAR HGB CONC 30.6 g/dL (32.0-36.0); MEAN CORPUSCULAR VOLUME 84.4 fL (79-99); NEUTROPHILS % (AUTO) 89.7 % (40.0-77.0); NUCLEATED RED BLOOD CELLS 0.3 % (0.0-0.19); PLATELET COUNT (AUTO) 307 K/uL (130-400); RED BLOOD CELL COUNT(AUTO) 3.79 MIL/uL (4.50-6.20); RED CELL DISTRIBUTION WIDTH 15.3 % (11.0-15.5); WHITE BLOOD COUNT (AUTO) 21.2 K/uL (4.8-10.8)
[2022-06-22 03:48] LABS: ABG BASE EXCESS 6.4 mmol/L (-2.0-3.0); ABG HCO3 30.2 mmol/L (21.0-28.0); ABG OXYGEN SATURATION 95.4 % (95.0-99.0); ABG PCO2 40 mmHg (35-48)
[2022-06-22] MEDS: CLINDAMYCIN IVPB 600MG/50ML 50 ML IV SCH (05:35)
[2022-06-22] MEDS: LACTATED RINGERS 1000ML 1,000 ML IV SCH ×2 (05:41→17:44)
[2022-06-22] MEDS: IPRATROPIUM 0.5 MG/2.5 ML INH IH SCH ×4 (06:51→23:01)
[2022-06-22] MEDS: ZOSYN 3.375GM +NS 50ML IVPB SCH ×3 (07:14→22:57)
[2022-06-22] MEDS: ASPIRIN 81 MG EC TAB PO SCH (07:56)
[2022-06-22] MEDS: CLOPIDOGREL 75MG TAB PO SCH (07:57)
[2022-06-22] MEDS: AMIODARONE 200 MG TABLET PO SCH (07:57)
[2022-06-22] MEDS: PREDNISONE 20 MG TABLET PO SCH (07:57)
[2022-06-22] MEDS: FAMOTIDINE 20MG TAB PO SCH ×2 (07:57→19:54)
[2022-06-22] MEDS: METOPROLOL TARTRATE 25 MG TAB PO SCH ×2 (07:57→20:00)
[2022-06-22] MEDS: OSELTAMIVIR PHOSPHATE 75 MG CAP PO SCH ×2 (07:57→19:54)
[2022-06-22] MEDS: DIAZEPAM 5 MG TABLET PO SCH (07:58)
[2022-06-22] MEDS: NICOTINE 21 MG/ 24 HR PATCH TD SCH (07:58)
[2022-06-22] MEDS: BALSAM PERU/CASTOR OIL 60 GM TUBE TP SCH ×2 (08:09→20:32)
[2022-06-22] MEDS: INSULIN HUMULIN R 100 UNIT/ML 3ML SQ SCH ×4 (08:11→19:56)
[2022-06-22] MEDS: INSULIN GLARGINE 100 UNITS/ML 10 ML VIAL SQ SCH ×2 (08:12→19:55)
[2022-06-22] MEDS: DOCUSATE NA 100MG/10ML UDCUP PO SCH (08:14)
[2022-06-22 08:40] LABS: BASOPHILS % (AUTO) 0.2 % (0.0-5.0); EOSINOPHILS % (AUTO) 0.1 % (0.0-8.0); HEMATOCRIT 27.3 % (42-54); LYMPHOCYTES % (AUTO) 8.1 % (21.0-51.0); MEAN CORPUSCULAR HEMOGLOBIN 25.7 pg (27.0-33.0); MEAN CORPUSCULAR HGB CONC 31.1 g/dL (32.0-36.0); MEAN CORPUSCULAR VOLUME 82.5 fL (79-99); MONOCYTES % (AUTO) 6.5 % (3.0-13.0); NEUTROPHILS % (AUTO) 83.7 % (40.0-77.0); NUCLEATED RED BLOOD CELLS 0.2 % (0.0-0.19); PLATELET COUNT (AUTO) 374 K/uL (130-400); RED BLOOD CELL COUNT(AUTO) 3.31 MIL/uL (4.50-6.20); RED CELL DISTRIBUTION WIDTH 15.1 % (11.0-15.5); WHITE BLOOD COUNT (AUTO) 19.6 K/uL (4.8-10.8)
[2022-06-22] MEDS: HEPARIN 25,000 UNITS/250ML D5W 250 ML IV SCH ×2 (09:25→20:31)
[2022-06-22 09:57] LABS: ALBUMIN 1.6 g/dL (3.5-5.0); CREATININE 0.7 mg/dL (0.5-1.5); TOTAL PROTEIN, SERUM 5.6 g/dL (6.0-8.3)
[2022-06-22 10:03] LABS: POTASSIUM 2.9 mmol/L (3.5-5.1)
[2022-06-22] MEDS: POTASSIUM CHLORIDE 20MEQ/100ML 100 ML IV PRN ×2 (10:22→12:28)
[2022-06-22] MEDS ORDERED: INSULIN HUMULIN R 100 UNIT/ML 3ML ONE (17:06)
[2022-06-22] MEDS ORDERED: METOPROLOL TARTRATE 25 MG TAB ONE (19:43)
[2022-06-22] MEDS ORDERED: OSELTAMIVIR PHOSPHATE 75 MG CAP ONE (19:44)
[2022-06-22] MEDS ORDERED: FAMOTIDINE 20MG TAB ONE (19:44)
[2022-06-22] MEDS ORDERED: POTASSIUM CHLORIDE 10% ELIXIR 20 MEQ/15 ML UDCUP ONE (19:45)
[2022-06-22] MEDS ORDERED: HEPARIN 25,000 UNITS/250ML D5W 250 ML IV ONE (19:46)
[2022-06-22] MEDS: POTASSIUM CHLORIDE 10% ELIXIR 20 MEQ/15 ML UDCUP PO PRN ×2 (19:54→20:11)
[2022-06-22] MEDS ORDERED: FENTANYL 2500MCG+NS 250ML 250 ML IV ONE (20:14)
[2022-06-22] MEDS ORDERED: ZOSYN 3.375GM+NS 50ML 50 ML IVPB ONE (22:54)
[2022-06-23] VITALS (34 sets, daily range): BP systolic 95–166; BP diastolic 44–99
[2022-06-23] MEDS ORDERED: DEXMEDETOMIDINE 400MCG/NS100ML IV ONE ×2 (00:01→06:07)
[2022-06-23] MEDS: DEXMEDETOMIDINE 400MCG/NS100ML IV SCH ×4 (00:04→21:44)
[2022-06-23 03:18] LABS: ABG BASE EXCESS 7.2 mmol/L (-2.0-3.0); ABG HCO3 30.6 mmol/L (21.0-28.0); ABG PCO2 39 mmHg (35-48)
[2022-06-23 04:22] LABS: BASOPHILS % (AUTO) 0.2 % (0.0-5.0); EOSINOPHILS % (AUTO) 1.7 % (0.0-8.0); HEMATOCRIT 27.5 % (42-54); MEAN CORPUSCULAR HEMOGLOBIN 26.1 pg (27.0-33.0); MEAN CORPUSCULAR HGB CONC 31.3 g/dL (32.0-36.0); MEAN CORPUSCULAR VOLUME 83.3 fL (79-99); MONOCYTES % (AUTO) 5.9 % (3.0-13.0); PLATELET COUNT (AUTO) 382 K/uL (130-400); RED CELL DISTRIBUTION WIDTH 15.2 % (11.0-15.5); WHITE BLOOD COUNT (AUTO) 18.5 K/uL (4.8-10.8)
[2022-06-23 04:52] LABS: CREATININE 0.7 mg/dL (0.5-1.5)
[2022-06-23] MEDS ORDERED: POTASSIUM CHLORIDE 10% ELIXIR 20 MEQ/15 ML UDCUP ONE (05:15)
[2022-06-23] MEDS ORDERED: POTASSIUM CHLORIDE 20MEQ/100ML 100 ML IV ONE ×2 (05:15→06:06)
[2022-06-23] MEDS: POTASSIUM CHLORIDE 10% ELIXIR 20 MEQ/15 ML UDCUP PO PRN (05:23)
[2022-06-23] MEDS: POTASSIUM CHLORIDE 20MEQ/100ML 100 ML IV PRN ×2 (05:24→06:14)
[2022-06-23] MEDS ORDERED: ZOSYN 3.375GM+NS 50ML 50 ML IVPB ONE (06:06)
[2022-06-23] MEDS ORDERED: HEPARIN 25,000 UNITS/250ML D5W 250 ML IV ONE (06:07)
[2022-06-23] MEDS: ZOSYN 3.375GM +NS 50ML IVPB SCH ×2 (06:08→14:37)
[2022-06-23] MEDS: INSULIN HUMULIN R 100 UNIT/ML 3ML SQ SCH ×4 (06:14→20:12)
[2022-06-23] MEDS: HEPARIN 25,000 UNITS/250ML D5W 250 ML IV SCH ×2 (06:23→22:59)
[2022-06-23] MEDS: IPRATROPIUM 0.5 MG/2.5 ML INH IH SCH ×4 (06:34→23:56)
[2022-06-23] MEDS: INSULIN GLARGINE 100 UNITS/ML 10 ML VIAL SQ SCH ×2 (07:56→20:36)
[2022-06-23] MEDS: AMIODARONE 200 MG TABLET PO SCH (08:09)
[2022-06-23] MEDS: CLOPIDOGREL 75MG TAB PO SCH (08:10)
[2022-06-23] MEDS: FAMOTIDINE 20MG TAB PO SCH ×2 (08:10→20:33)
[2022-06-23] MEDS: PREDNISONE 20 MG TABLET PO SCH (08:10)
[2022-06-23] MEDS: ASPIRIN 81 MG EC TAB PO SCH (08:10)
[2022-06-23] MEDS: METOPROLOL TARTRATE 25 MG TAB PO SCH ×2 (08:10→20:34)
[2022-06-23] MEDS: BALSAM PERU/CASTOR OIL 60 GM TUBE TP SCH (08:11)
[2022-06-23] MEDS: DIAZEPAM 5 MG TABLET PO SCH (08:11)
[2022-06-23] MEDS: NICOTINE 21 MG/ 24 HR PATCH TD SCH (09:23)
[2022-06-23] MEDS: ASCORBIC ACID 500 MG TAB PO SCH ×2 (11:14→20:33)
[2022-06-23] MEDS: LACTULOSE 20 GM/30 ML UDCUP PO PRN (16:37)
[2022-06-23] MEDS ORDERED: FENTANYL 2500MCG+NS 250ML 250 ML IV ONE (17:18)
[2022-06-23] MEDS ORDERED: FENTANYL 2500MCG+NS 250ML IV.SOLN IV SCH (17:30)
[2022-06-23] MEDS ORDERED: DIAZEPAM 5 MG TABLET PO PRN (18:30)
[2022-06-23] MEDS: HONEY 1 APPL/ML TUBE TP SCH (20:36)
[2022-06-23] MEDS ORDERED: VANCOMYCIN 1G VIAL IVPB ONE (21:00)
[2022-06-23] MEDS ORDERED: VANCOMYCIN PROTOCOL PER PHARMACY IV SCH (21:00)
[2022-06-23] MEDS ORDERED: VANCOMYCIN 1.5 GM/250 ML BAG 250 ML IV ONE (21:30)
[2022-06-23] MEDS: BUDESONIDE 0.5 MG/2 ML INH IH SCH (21:32)
[2022-06-23] MEDS: CHLORHEXIDINE GLUCONATE 473 ML MOUTHWASH MM SCH (21:39)
[2022-06-24] VITALS (29 sets, daily range): BP systolic 97–145; BP diastolic 50–74
[2022-06-24] MEDS: ZOSYN 3.375GM +NS 50ML IVPB SCH ×3 (00:13→15:52)
[2022-06-24] MEDS: CHLORHEXIDINE GLUCONATE 473 ML MOUTHWASH MM SCH ×4 (02:45→20:15)
[2022-06-24] MEDS: DEXMEDETOMIDINE 400MCG/NS100ML IV SCH ×4 (03:17→21:01)
[2022-06-24 04:00] LABS: HEMATOCRIT 26.2 % (42-54); MEAN CORPUSCULAR HGB CONC 31.7 g/dL (32.0-36.0); MEAN CORPUSCULAR VOLUME 82.1 fL (79-99); NUCLEATED RED BLOOD CELLS 0.1 % (0.0-0.19); RED BLOOD CELL COUNT(AUTO) 3.19 MIL/uL (4.50-6.20); RED CELL DISTRIBUTION WIDTH 15.7 % (11.0-15.5); WHITE BLOOD COUNT (AUTO) 17.8 K/uL (4.8-10.8)
[2022-06-24 04:11] LABS: CREATININE 0.7 mg/dL (0.5-1.5)
[2022-06-24] MEDS: POTASSIUM CHLORIDE 20MEQ/100ML 100 ML IV PRN (04:26)
[2022-06-24] MEDS: POTASSIUM CHLORIDE 10% ELIXIR 20 MEQ/15 ML UDCUP PO PRN ×3 (05:09→10:31)
[2022-06-24] MEDS: VANCOMYCIN 1.5 GM/250 ML BAG 250 ML IV SCH ×2 (06:20→17:50)
[2022-06-24] MEDS: INSULIN GLARGINE 100 UNITS/ML 10 ML VIAL SQ SCH ×2 (06:21→20:14)
[2022-06-24] MEDS: INSULIN HUMULIN R 100 UNIT/ML 3ML SQ SCH ×4 (06:22→23:39)
[2022-06-24] MEDS: BUDESONIDE 0.5 MG/2 ML INH IH SCH ×2 (06:35→18:31)
[2022-06-24] MEDS: IPRATROPIUM 0.5 MG/2.5 ML INH IH SCH ×4 (06:35→23:21)
[2022-06-24] MEDS: NICOTINE 21 MG/ 24 HR PATCH TD SCH (08:33)
[2022-06-24] MEDS: AMIODARONE 200 MG TABLET PO SCH (08:33)
[2022-06-24] MEDS: ASPIRIN 81 MG EC TAB PO SCH (08:33)
[2022-06-24] MEDS: METOPROLOL TARTRATE 25 MG TAB PO SCH ×2 (08:33→20:12)
[2022-06-24] MEDS: DIAZEPAM 5 MG TABLET PO SCH (08:33)
[2022-06-24] MEDS: ASCORBIC ACID 500 MG TAB PO SCH ×2 (08:33→20:12)
[2022-06-24] MEDS: FAMOTIDINE 20MG TAB PO SCH ×2 (08:33→20:12)
[2022-06-24] MEDS: CLOPIDOGREL 75MG TAB PO SCH (08:34)
[2022-06-24] MEDS: HONEY 1 APPL/ML TUBE TP SCH ×2 (08:34→20:15)
[2022-06-24] MEDS: PREDNISONE 10 MG TABLET PO SCH (10:23)
[2022-06-24] MEDS: FENTANYL 2500MCG+NS 250ML IV SCH (11:48)
[2022-06-24] MEDS: HEPARIN 25,000 UNITS/250ML D5W 250 ML IV SCH (16:00)
[2022-06-24] MEDS: ARTIFICIAL TEARS 3.5 GM OINTMENT OS SCH (20:30)
[2022-06-25] VITALS (51 sets, daily range): BP systolic 99–145; BP diastolic 52–78
[2022-06-25] MEDS: ZOSYN 3.375GM +NS 50ML IVPB SCH ×3 (00:21→15:41)
[2022-06-25] MEDS: CHLORHEXIDINE GLUCONATE 473 ML MOUTHWASH MM SCH ×4 (04:03→21:02)
[2022-06-25] MEDS: DEXMEDETOMIDINE 400MCG/NS100ML IV SCH ×3 (04:12→16:07)
[2022-06-25] MEDS: FENTANYL 2500MCG+NS 250ML IV SCH (04:36)
[2022-06-25 05:30] LABS: MEAN CORPUSCULAR HEMOGLOBIN 26.1 pg (27.0-33.0); MEAN CORPUSCULAR HGB CONC 30.7 g/dL (32.0-36.0); MEAN CORPUSCULAR VOLUME 84.9 fL (79-99); NUCLEATED RED BLOOD CELLS 0.3 % (0.0-0.19); RED BLOOD CELL COUNT(AUTO) 3.18 MIL/uL (4.50-6.20); RED CELL DISTRIBUTION WIDTH 16.2 % (11.0-15.5); WHITE BLOOD COUNT (AUTO) 15.7 K/uL (4.8-10.8)
[2022-06-25 05:48] LABS: CREATININE 1.1 mg/dL (0.5-1.5); POTASSIUM 3.7 mmol/L (3.5-5.1)
[2022-06-25] MEDS: INSULIN HUMULIN R 100 UNIT/ML 3ML SQ SCH ×3 (06:00→18:00)
[2022-06-25] MEDS: VANCOMYCIN 1.5 GM/250 ML BAG 250 ML IV SCH (06:00)
[2022-06-25] MEDS: BUDESONIDE 0.5 MG/2 ML INH IH SCH ×2 (06:23→18:28)
[2022-06-25] MEDS: IPRATROPIUM 0.5 MG/2.5 ML INH IH SCH ×4 (06:24→23:13)
[2022-06-25] MEDS ORDERED: PHARMACY COMMUNICATION MISC SCH (07:00)
[2022-06-25 07:07] LABS: ABG BASE EXCESS 4.2 mmol/L (-2.0-3.0); ABG HCO3 27.7 mmol/L (21.0-28.0); ABG OXYGEN SATURATION 95.9 % (95.0-99.0); ABG PCO2 37 mmHg (35-48)
[2022-06-25] MEDS: INSULIN GLARGINE 100 UNITS/ML 10 ML VIAL SQ SCH ×2 (07:30→21:04)
[2022-06-25] MEDS: CLOPIDOGREL 75MG TAB PO SCH (09:00)
[2022-06-25] MEDS: AMIODARONE 200 MG TABLET PO SCH (09:00)
[2022-06-25] MEDS: FAMOTIDINE 20MG TAB PO SCH ×2 (09:00→20:43)
[2022-06-25] MEDS: DIAZEPAM 5 MG TABLET PO SCH (09:00)
[2022-06-25] MEDS: ASPIRIN 81 MG EC TAB PO SCH (09:00)
[2022-06-25] MEDS: ASCORBIC ACID 500 MG TAB PO SCH ×2 (09:00→20:44)
[2022-06-25] MEDS: PREDNISONE 10 MG TABLET PO SCH (09:00)
[2022-06-25] MEDS: METOPROLOL TARTRATE 25 MG TAB PO SCH ×2 (09:00→20:43)
[2022-06-25] MEDS ORDERED: FUROSEMIDE 20MG VIAL IV SCH (10:00)
[2022-06-25] MEDS ORDERED: PROPOFOL 10 MG/ML 20ML VIAL IV ONE (10:08)
[2022-06-25] MEDS ORDERED: FENTANYL CITRATE PF 50 MCG/1 ML 2ML VIAL ONE ×2 (10:08→10:42)
[2022-06-25] MEDS ORDERED: EPHEDRINE SULFATE 50 MG/ML AMPULE ONE (10:09)
[2022-06-25] MEDS ORDERED: PHENYLEPHRINE HCL 10 MG/ML 1ML VIAL IV ONE (11:20)
[2022-06-25] MEDS: NICOTINE 21 MG/ 24 HR PATCH TD SCH (13:34)
[2022-06-25] MEDS: HONEY 1 APPL/ML TUBE TP SCH ×2 (15:36→20:44)
[2022-06-25] MEDS ORDERED: MORPHINE 2 MG SYG IVP PRN ×2 (20:30)
[2022-06-25] MEDS: ARTIFICIAL TEARS 3.5 GM OINTMENT OS SCH (20:43)
[2022-06-26] VITALS (31 sets, daily range): BP systolic 93–223; BP diastolic 62–108
[2022-06-26] MEDS: ZOSYN 3.375GM +NS 50ML IVPB SCH ×4 (00:53→23:59)
[2022-06-26] MEDS: INSULIN HUMULIN R 100 UNIT/ML 3ML SQ SCH ×4 (00:56→17:27)
[2022-06-26] MEDS: DEXMEDETOMIDINE 400MCG/NS100ML IV SCH ×3 (01:31→10:36)
[2022-06-26] MEDS: CHLORHEXIDINE GLUCONATE 473 ML MOUTHWASH MM SCH ×4 (04:33→21:16)
[2022-06-26 05:08] LABS: BASOPHILS % (AUTO) 0.2 % (0.0-5.0); EOSINOPHILS % (AUTO) 0.8 % (0.0-8.0); HEMATOCRIT 27.6 % (42-54); MEAN CORPUSCULAR HEMOGLOBIN 26.3 pg (27.0-33.0); MEAN CORPUSCULAR HGB CONC 30.4 g/dL (32.0-36.0); MEAN CORPUSCULAR VOLUME 86.3 fL (79-99); MONOCYTES % (AUTO) 6.6 % (3.0-13.0); NEUTROPHILS % (AUTO) 84.7 % (40.0-77.0); PLATELET COUNT (AUTO) 510 K/uL (130-400); RED CELL DISTRIBUTION WIDTH 16.7 % (11.0-15.5); WHITE BLOOD COUNT (AUTO) 17.4 K/uL (4.8-10.8)
[2022-06-26 05:26] LABS: ALBUMIN 1.7 g/dL (3.5-5.0); CREATININE 1.1 mg/dL (0.5-1.5); POTASSIUM 3.4 mmol/L (3.5-5.1); TOTAL PROTEIN, SERUM 5.9 g/dL (6.0-8.3); VANCOMYCIN LEVEL 10.7 mcg/mL (18.0-26.0)
[2022-06-26] MEDS: BUDESONIDE 0.5 MG/2 ML INH IH SCH ×2 (06:38→18:33)
[2022-06-26] MEDS: IPRATROPIUM 0.5 MG/2.5 ML INH IH SCH ×4 (06:38→23:28)
[2022-06-26] MEDS: INSULIN GLARGINE 100 UNITS/ML 10 ML VIAL SQ SCH ×2 (06:46→21:26)
[2022-06-26] MEDS: VANCOMYCIN 1G/250ML KIT 250 ML IV SCH ×2 (07:00→17:30)
[2022-06-26 07:11] LABS: ABG BASE EXCESS 5.7 mmol/L (-2.0-3.0); ABG OXYGEN SATURATION 93.9 % (95.0-99.0); ABG PCO2 34 mmHg (35-48)
[2022-06-26] MEDS: METOPROLOL TARTRATE 25 MG TAB PO SCH ×3 (09:00→20:56)
[2022-06-26] MEDS: AMIODARONE 200 MG TABLET PO SCH (09:42)
[2022-06-26] MEDS: ASPIRIN 81 MG EC TAB PO SCH (09:42)
[2022-06-26] MEDS: FAMOTIDINE 20MG TAB PO SCH ×2 (09:43→20:57)
[2022-06-26] MEDS: DIAZEPAM 5 MG TABLET PO SCH ×2 (09:43→21:18)
[2022-06-26] MEDS: CLOPIDOGREL 75MG TAB PO SCH (09:43)
[2022-06-26] MEDS: HONEY 1 APPL/ML TUBE TP SCH ×2 (09:44→21:16)
[2022-06-26] MEDS: PREDNISONE 10 MG TABLET PO SCH (09:51)
[2022-06-26] MEDS ORDERED: NYSTATIN 15 GM POWDER TP ONE (10:00)
[2022-06-26] MEDS: NICOTINE 21 MG/ 24 HR PATCH TD SCH (10:50)
[2022-06-26] MEDS: ASCORBIC ACID 500 MG TAB PO SCH ×2 (11:54→20:58)
[2022-06-26] MEDS: METOPROLOL TARTRATE 1 MG/ML 5ML VIAL IV PRN (15:24)
[2022-06-26] MEDS ORDERED: CLONIDINE HCL 0.1 MG TABLET PO PRN (15:30)
[2022-06-26] MEDS ORDERED: LISINOPRIL 10 MG TABLET PO SCH (15:40)
[2022-06-26] MEDS ORDERED: METOPROLOL TARTRATE 25 MG TAB PO SCH (16:00)
[2022-06-26 17:26] LABS: POTASSIUM 3.5 mmol/L (3.5-5.1)
[2022-06-26 17:29] LABS: INR 1.05 (0.85-1.15); PROTHROMBIN TIME 11.4 SEC (9.6-11.6)
[2022-06-26 17:30] LABS: PARTIAL THROMBOPLASTIN TIME 36.1 SEC (26.3-35.5)
[2022-06-26] MEDS ORDERED: HEPARIN 5,000 UNIT VIAL ONE (18:16)
[2022-06-26] MEDS: HEPARIN 25,000 UNITS/250ML D5W 250 ML IV SCH (20:48)
[2022-06-26] MEDS: PREGABALIN 100 MG CAPSULE PO SCH (20:55)
[2022-06-26] MEDS: LISINOPRIL 10 MG TABLET PO SCH (20:55)
[2022-06-26] MEDS: FENOFIBRATE NANOCRYSTALLIZED 48 MG TAB PO SCH (20:57)
[2022-06-26] MEDS: ARTIFICIAL TEARS 3.5 GM OINTMENT OS SCH (21:15)
[2022-06-26] MEDS: ATORVASTATIN 40 MG TABLET PO SCH (21:17)
[2022-06-27] VITALS (15 sets, daily range): BP systolic 102–191; BP diastolic 58–99
[2022-06-27 00:40] LABS: INR 1.07 (0.85-1.15); PROTHROMBIN TIME 11.6 SEC (9.6-11.6)
[2022-06-27 00:42] LABS: PARTIAL THROMBOPLASTIN TIME 52.9 SEC (26.3-35.5)
[2022-06-27] MEDS: INSULIN HUMULIN R 100 UNIT/ML 3ML SQ SCH ×5 (01:10→21:12)
[2022-06-27] MEDS: CHLORHEXIDINE GLUCONATE 473 ML MOUTHWASH MM SCH ×4 (05:29→21:17)
[2022-06-27] MEDS: BUDESONIDE 0.5 MG/2 ML INH IH SCH ×2 (06:11→18:47)
[2022-06-27] MEDS: IPRATROPIUM 0.5 MG/2.5 ML INH IH SCH ×4 (06:11→23:10)
[2022-06-27 07:32] LABS: HEMATOCRIT 29.8 % (42-54); MEAN CORPUSCULAR HEMOGLOBIN 25.8 pg (27.0-33.0); MEAN CORPUSCULAR HGB CONC 29.9 g/dL (32.0-36.0); MEAN CORPUSCULAR VOLUME 86.4 fL (79-99); RED BLOOD CELL COUNT(AUTO) 3.45 MIL/uL (4.50-6.20); RED CELL DISTRIBUTION WIDTH 17.5 % (11.0-15.5); WHITE BLOOD COUNT (AUTO) 18.1 K/uL (4.8-10.8)
[2022-06-27 07:46] LABS: INR 1.05 (0.85-1.15); PROTHROMBIN TIME 11.4 SEC (9.6-11.6)
[2022-06-27 07:48] LABS: PARTIAL THROMBOPLASTIN TIME 29.1 SEC (26.3-35.5)
[2022-06-27] MEDS: INSULIN GLARGINE 100 UNITS/ML 10 ML VIAL SQ SCH ×2 (07:50→21:12)
[2022-06-27] MEDS: ASPIRIN 81 MG EC TAB PO SCH (08:06)
[2022-06-27] MEDS: ZOSYN 3.375GM +NS 50ML IVPB SCH ×3 (08:06→23:40)
[2022-06-27] MEDS: CLOPIDOGREL 75MG TAB PO SCH (08:07)
[2022-06-27] MEDS: ASCORBIC ACID 500 MG TAB PO SCH ×2 (08:07→21:15)
[2022-06-27] MEDS: PREGABALIN 100 MG CAPSULE PO SCH ×2 (08:07→21:15)
[2022-06-27] MEDS: DIAZEPAM 5 MG TABLET PO SCH ×2 (08:07→21:00)
[2022-06-27] MEDS: METOPROLOL TARTRATE 25 MG TAB PO SCH ×2 (08:08→21:15)
[2022-06-27] MEDS: FENOFIBRATE NANOCRYSTALLIZED 48 MG TAB PO SCH ×2 (08:08→21:14)
[2022-06-27] MEDS: AMIODARONE 200 MG TABLET PO SCH (08:08)
[2022-06-27] MEDS: LISINOPRIL 10 MG TABLET PO SCH ×2 (08:08→21:15)
[2022-06-27] MEDS: NICOTINE 21 MG/ 24 HR PATCH TD SCH (08:08)
[2022-06-27] MEDS: FAMOTIDINE 20MG TAB PO SCH ×2 (08:08→21:15)
[2022-06-27 08:24] LABS: POTASSIUM 3.1 mmol/L (3.5-5.1)
[2022-06-27] MEDS ORDERED: HEPARIN 5,000 UNIT VIAL ONE (08:55)
[2022-06-27] MEDS: VANCOMYCIN 1G/250ML KIT 250 ML IV SCH ×2 (10:40→17:03)
[2022-06-27] MEDS: HEPARIN 25,000 UNITS/250ML D5W 250 ML IV SCH (10:58)
[2022-06-27] MEDS: POTASSIUM CHLORIDE 10% ELIXIR 20 MEQ/15 ML UDCUP PO PRN (11:44)
[2022-06-27] MEDS: HONEY 1 APPL/ML TUBE TP SCH ×2 (11:51→21:16)
[2022-06-27] MEDS ORDERED: POTASSIUM CHLORIDE 20 MEQ/100 ML BAG IV SCH (13:30)
[2022-06-27] MEDS: POTASSIUM CHLORIDE 20MEQ/100ML 100 ML IV PRN ×2 (13:47→14:44)
[2022-06-27 18:16] LABS: INR 1.05 (0.85-1.15); PROTHROMBIN TIME 11.4 SEC (9.6-11.6)
[2022-06-27 18:17] LABS: PARTIAL THROMBOPLASTIN TIME 72.1 SEC (26.3-35.5)
[2022-06-27] MEDS: ARTIFICIAL TEARS 3.5 GM OINTMENT OS SCH (21:00)
[2022-06-27] MEDS: ATORVASTATIN 40 MG TABLET PO SCH (21:16)
[2022-06-27] MEDS ORDERED: FUROSEMIDE 20MG VIAL IV ONE (23:00)
[2022-06-28] MEDS: CHLORHEXIDINE GLUCONATE 473 ML MOUTHWASH MM SCH ×3 (02:29→15:30)
[2022-06-28 03:40] VITALS: BP 142/74
[2022-06-28] MEDS: INSULIN HUMULIN R 100 UNIT/ML 3ML SQ SCH ×3 (05:46→16:36)
[2022-06-28] MEDS: VANCOMYCIN 1G/250ML KIT 250 ML IV SCH ×2 (06:10→17:40)
[2022-06-28] MEDS ORDERED: BUDESONIDE 0.5 MG/2 ML INH IH ONE (06:20)
[2022-06-28 06:46] LABS: HEMATOCRIT 27.6 % (42-54); MEAN CORPUSCULAR HEMOGLOBIN 25.7 pg (27.0-33.0); MEAN CORPUSCULAR HGB CONC 30.1 g/dL (32.0-36.0); MEAN CORPUSCULAR VOLUME 85.4 fL (79-99); RED BLOOD CELL COUNT(AUTO) 3.23 MIL/uL (4.50-6.20); RED CELL DISTRIBUTION WIDTH 17.6 % (11.0-15.5); WHITE BLOOD COUNT (AUTO) 17.1 K/uL (4.8-10.8)
[2022-06-28] MEDS: BUDESONIDE 0.5 MG/2 ML INH IH SCH ×2 (07:03→20:47)
[2022-06-28] MEDS: IPRATROPIUM 0.5 MG/2.5 ML INH IH SCH ×4 (07:03→23:38)
[2022-06-28 07:06] LABS: ALBUMIN 1.9 g/dL (3.5-5.0); CREATININE 1.2 mg/dL (0.5-1.5); TOTAL PROTEIN, SERUM 6.2 g/dL (6.0-8.3)
[2022-06-28 07:08] LABS: POTASSIUM 2.7 mmol/L (3.5-5.1)
[2022-06-28] MEDS: INSULIN GLARGINE 100 UNITS/ML 10 ML VIAL SQ SCH (07:30)
[2022-06-28 08:00] VITALS: BP 139/62
[2022-06-28] MEDS ORDERED: HEPARIN 5,000 UNIT VIAL IV SCH (08:00)
[2022-06-28] MEDS: ZOSYN 3.375GM +NS 50ML IVPB SCH ×2 (08:35→14:43)
[2022-06-28] MEDS: FAMOTIDINE 20MG TAB PO SCH (08:36)
[2022-06-28] MEDS: HONEY 1 APPL/ML TUBE TP SCH (08:36)
[2022-06-28] MEDS: FUROSEMIDE 40 MG TABLET PO SCH (08:37)
[2022-06-28] MEDS: LISINOPRIL 10 MG TABLET PO SCH ×2 (08:37→21:00)
[2022-06-28] MEDS: AMIODARONE 200 MG TABLET PO SCH (08:38)
[2022-06-28] MEDS: METOPROLOL TARTRATE 25 MG TAB PO SCH (08:38)
[2022-06-28] MEDS: DIAZEPAM 5 MG TABLET PO SCH (08:38)
[2022-06-28] MEDS: ASPIRIN 81 MG EC TAB PO SCH (08:38)
[2022-06-28] MEDS: FENOFIBRATE NANOCRYSTALLIZED 48 MG TAB PO SCH (08:39)
[2022-06-28] MEDS: NICOTINE 21 MG/ 24 HR PATCH TD SCH (08:39)
[2022-06-28] MEDS: CLOPIDOGREL 75MG TAB PO SCH (08:39)
[2022-06-28] MEDS: ASCORBIC ACID 500 MG TAB PO SCH (08:45)
[2022-06-28] MEDS: POTASSIUM CHLORIDE 20MEQ/100ML 100 ML IV PRN ×4 (08:50→12:55)
[2022-06-28] MEDS: PREGABALIN 100 MG CAPSULE PO SCH ×2 (09:31→21:00)
[2022-06-28] MEDS: ACETAMINOPHEN 325 MG TAB PO PRN (11:36)
[2022-06-28 12:00] VITALS: BP 131/73
[2022-06-28 16:00] VITALS: BP 120/69
[2022-06-28 20:02] VITALS: BP 105/53
[2022-06-28 21:07] LABS: INR 1.02 (0.85-1.15); PROTHROMBIN TIME 11.1 SEC (9.6-11.6)
[2022-06-28 21:08] LABS: PARTIAL THROMBOPLASTIN TIME 26.2 SEC (26.3-35.5)
[2022-06-29] MEDS: METOPROLOL TARTRATE 25 MG TAB PO SCH ×3 (00:06→22:16)
[2022-06-29] MEDS: APIXABAN 5 MG TABLET PO SCH ×3 (00:06→22:18)
[2022-06-29] MEDS: DIAZEPAM 5 MG TABLET PO SCH ×3 (00:12→22:17)
[2022-06-29] MEDS: FAMOTIDINE 20MG TAB PO SCH ×3 (00:13→22:15)
[2022-06-29] MEDS: ASCORBIC ACID 500 MG TAB PO SCH ×3 (00:13→22:15)
[2022-06-29] MEDS: FENOFIBRATE NANOCRYSTALLIZED 48 MG TAB PO SCH ×3 (00:13→22:15)
[2022-06-29] MEDS: ATORVASTATIN 40 MG TABLET PO SCH ×2 (00:14→22:14)
[2022-06-29] MEDS: ZOSYN 3.375GM +NS 50ML IVPB SCH ×3 (00:14→17:29)
[2022-06-29] MEDS: INSULIN GLARGINE 100 UNITS/ML 10 ML VIAL SQ SCH ×3 (00:17→22:24)
[2022-06-29] MEDS: INSULIN HUMULIN R 100 UNIT/ML 3ML SQ SCH ×5 (00:19→22:26)
[2022-06-29] MEDS: CHLORHEXIDINE GLUCONATE 473 ML MOUTHWASH MM SCH ×5 (00:20→22:18)
[2022-06-29 00:21] VITALS: BP 127/78
[2022-06-29] MEDS: HONEY 1 APPL/ML TUBE TP SCH ×3 (00:21→22:19)
[2022-06-29] MEDS: ARTIFICIAL TEARS 3.5 GM OINTMENT OS SCH ×2 (00:22→22:18)
[2022-06-29 04:36] VITALS: BP 149/71
[2022-06-29] MEDS: VANCOMYCIN 1G/250ML KIT 250 ML IV SCH (06:00)
[2022-06-29 06:28] LABS: BASOPHILS % (AUTO) 0.3 % (0.0-5.0); EOSINOPHILS % (AUTO) 1.4 % (0.0-8.0); HEMATOCRIT 25.4 % (42-54); LYMPHOCYTES % (AUTO) 11.9 % (21.0-51.0); MEAN CORPUSCULAR HEMOGLOBIN 26.5 pg (27.0-33.0); MEAN CORPUSCULAR HGB CONC 29.9 g/dL (32.0-36.0); MEAN CORPUSCULAR VOLUME 88.5 fL (79-99); MONOCYTES % (AUTO) 6.4 % (3.0-13.0); NEUTROPHILS % (AUTO) 79.5 % (40.0-77.0); RED BLOOD CELL COUNT(AUTO) 2.87 MIL/uL (4.50-6.20); RED CELL DISTRIBUTION WIDTH 17.9 % (11.0-15.5); WHITE BLOOD COUNT (AUTO) 14.7 K/uL (4.8-10.8)
[2022-06-29 06:31] LABS: PLATELET COUNT (AUTO) 718 K/uL (130-400)
[2022-06-29] MEDS: IPRATROPIUM 0.5 MG/2.5 ML INH IH SCH ×4 (06:32→23:49)
[2022-06-29] MEDS: BUDESONIDE 0.5 MG/2 ML INH IH SCH ×2 (06:32→19:20)
[2022-06-29 06:45] LABS: INR 1.05 (0.85-1.15); PROTHROMBIN TIME 11.4 SEC (9.6-11.6)
[2022-06-29 07:13] LABS: CREATININE 1.3 mg/dL (0.5-1.5); MAGNESIUM 2.1 mg/dL (1.80-2.40); POTASSIUM 3.8 mmol/L (3.5-5.1); TOTAL PROTEIN, SERUM 6.8 g/dL (6.0-8.3)
[2022-06-29 08:00] VITALS: BP 149/71
[2022-06-29] MEDS: 0.9%NACL 10ML VIAL IV SCH ×3 (08:00→16:00)
[2022-06-29] MEDS: NICOTINE 21 MG/ 24 HR PATCH TD SCH (09:36)
[2022-06-29] MEDS: LISINOPRIL 10 MG TABLET PO SCH ×2 (09:37→22:17)
[2022-06-29] MEDS: ASPIRIN 81 MG EC TAB PO SCH (09:37)
[2022-06-29] MEDS: CLOPIDOGREL 75MG TAB PO SCH (09:38)
[2022-06-29] MEDS: AMIODARONE 200 MG TABLET PO SCH (09:38)
[2022-06-29] MEDS: FUROSEMIDE 40 MG TABLET PO SCH (09:43)
[2022-06-29] MEDS: PREGABALIN 100 MG CAPSULE PO SCH ×2 (09:58→22:21)
[2022-06-29 12:00] VITALS: BP 158/80
[2022-06-29 14:16] LABS: % IRON SATURATION 14.8 % (30-44)
[2022-06-29] MEDS ORDERED: GLUCAGON 1MG KIT 1 MG ML IM PRN (15:00)
[2022-06-29] MEDS ORDERED: DEXTROSE 50%-WATER 50 ML DISP.SYRIN IV PRN (15:00)
[2022-06-29 16:00] VITALS: BP 154/95
[2022-06-29] MEDS: ACETAMINOPHEN 325 MG TAB PO PRN (18:01)
[2022-06-29 19:15] VITALS: BP 141/73
[2022-06-29] MEDS: MEROPENEM 1 GM VIAL IVP SCH (22:14)
[2022-06-30 00:15] VITALS: BP 131/77
[2022-06-30] MEDS: 0.9%NACL 10ML VIAL IV SCH ×4 (00:38→23:31)
[2022-06-30] MEDS: CHLORHEXIDINE GLUCONATE 473 ML MOUTHWASH MM SCH ×4 (03:03→20:54)
[2022-06-30 03:15] VITALS: BP 137/74
[2022-06-30 04:20] LABS: BASOPHILS % (AUTO) 0.2 % (0.0-5.0); EOSINOPHILS % (AUTO) 1.1 % (0.0-8.0); HEMATOCRIT 32.6 % (42-54); LYMPHOCYTES % (AUTO) 12.4 % (21.0-51.0); MEAN CORPUSCULAR HEMOGLOBIN 26.4 pg (27.0-33.0); MEAN CORPUSCULAR HGB CONC 31.3 g/dL (32.0-36.0); MEAN CORPUSCULAR VOLUME 84.2 fL (79-99); MONOCYTES % (AUTO) 5.8 % (3.0-13.0); RED BLOOD CELL COUNT(AUTO) 3.87 MIL/uL (4.50-6.20); RED CELL DISTRIBUTION WIDTH 17.1 % (11.0-15.5); WHITE BLOOD COUNT (AUTO) 12.9 K/uL (4.8-10.8)
[2022-06-30 04:25] LABS: PLATELET COUNT (AUTO) 715 K/uL (130-400)
[2022-06-30 04:32] LABS: ALBUMIN 1.9 g/dL (3.5-5.0); CREATININE 1.1 mg/dL (0.5-1.5); TOTAL PROTEIN, SERUM 6.6 g/dL (6.0-8.3)
[2022-06-30] MEDS: MEROPENEM 1 GM VIAL IVP SCH ×3 (05:25→20:33)
[2022-06-30] MEDS: POTASSIUM CHLORIDE 20MEQ/100ML 100 ML IV PRN (05:26)
[2022-06-30] MEDS: KCL 20 MEQ ERTAB PO PRN ×4 (05:26→20:41)
[2022-06-30] MEDS: INSULIN HUMULIN R 100 UNIT/ML 3ML SQ SCH ×7 (06:19→21:06)
[2022-06-30] MEDS: BUDESONIDE 0.5 MG/2 ML INH IH SCH ×2 (06:32→18:56)
[2022-06-30] MEDS: IPRATROPIUM 0.5 MG/2.5 ML INH IH SCH ×3 (06:32→18:56)
[2022-06-30 08:58] VITALS: BP 144/75
[2022-06-30] MEDS: VANCOMYCIN 1.5 GM/250 ML BAG 250 ML IV SCH (09:25)
[2022-06-30] MEDS: FAMOTIDINE 20MG TAB PO SCH ×2 (09:26→20:42)
[2022-06-30] MEDS: APIXABAN 5 MG TABLET PO SCH ×2 (09:26→20:42)
[2022-06-30] MEDS: ASPIRIN 81 MG EC TAB PO SCH (09:26)
[2022-06-30] MEDS: PREGABALIN 100 MG CAPSULE PO SCH ×2 (09:27→20:42)
[2022-06-30] MEDS: AMIODARONE 200 MG TABLET PO SCH (09:27)
[2022-06-30] MEDS: CLOPIDOGREL 75MG TAB PO SCH (09:27)
[2022-06-30] MEDS: FENOFIBRATE NANOCRYSTALLIZED 48 MG TAB PO SCH ×2 (09:27→20:42)
[2022-06-30] MEDS: ASCORBIC ACID 500 MG TAB PO SCH ×2 (09:28→20:42)
[2022-06-30] MEDS: DIAZEPAM 5 MG TABLET PO SCH ×2 (09:28→20:43)
[2022-06-30] MEDS: METOPROLOL TARTRATE 25 MG TAB PO SCH ×2 (09:28→20:42)
[2022-06-30] MEDS: LISINOPRIL 10 MG TABLET PO SCH ×2 (09:28→20:41)
[2022-06-30] MEDS: NICOTINE 21 MG/ 24 HR PATCH TD SCH (09:29)
[2022-06-30] MEDS: HONEY 1 APPL/ML TUBE TP SCH ×2 (09:29→20:43)
[2022-06-30] MEDS: FUROSEMIDE 40 MG TABLET PO SCH (09:31)
[2022-06-30 11:43] VITALS: BP 114/70
[2022-06-30] MEDS: LIDOCAINE 5% TOPICAL PATCH TP SCH (13:47)
[2022-06-30 15:36] VITALS: BP 140/69
[2022-06-30 20:00] VITALS: BP 152/80
[2022-06-30] MEDS: FLUCONAZOLE 400 MG/NS 200 ML 200 ML IV SCH (20:36)
[2022-06-30] MEDS: ATORVASTATIN 40 MG TABLET PO SCH (20:41)
[2022-06-30] MEDS: ARTIFICIAL TEARS 3.5 GM OINTMENT OS SCH (20:53)
[2022-06-30] MEDS: INSULIN GLARGINE 100 UNITS/ML 10 ML VIAL SQ SCH (21:07)
[2022-07-01 00:21] VITALS: BP 145/81
[2022-07-01] MEDS: IPRATROPIUM 0.5 MG/2.5 ML INH IH SCH ×3 (00:26→11:25)
[2022-07-01] MEDS: CHLORHEXIDINE GLUCONATE 473 ML MOUTHWASH MM SCH ×2 (04:04→08:50)
[2022-07-01 04:10] VITALS: BP 144/72
[2022-07-01 04:25] LABS: BASOPHILS % (AUTO) 0.6 % (0.0-5.0); EOSINOPHILS % (AUTO) 1.1 % (0.0-8.0); HEMATOCRIT 35.5 % (42-54); LYMPHOCYTES % (AUTO) 15.2 % (21.0-51.0); MEAN CORPUSCULAR HEMOGLOBIN 26.4 pg (27.0-33.0); MEAN CORPUSCULAR HGB CONC 29.6 g/dL (32.0-36.0); MEAN CORPUSCULAR VOLUME 89.4 fL (79-99); MONOCYTES % (AUTO) 6.8 % (3.0-13.0); NEUTROPHILS % (AUTO) 75.8 % (40.0-77.0); PLATELET COUNT (AUTO) 673 K/uL (130-400); RED BLOOD CELL COUNT(AUTO) 3.97 MIL/uL (4.50-6.20); RED CELL DISTRIBUTION WIDTH 17.7 % (11.0-15.5); WHITE BLOOD COUNT (AUTO) 14.9 K/uL (4.8-10.8)
[2022-07-01 04:39] LABS: CREATININE 1.3 mg/dL (0.5-1.5); POTASSIUM 3.9 mmol/L (3.5-5.1); TOTAL PROTEIN, SERUM 6.8 g/dL (6.0-8.3)
[2022-07-01] MEDS: MEROPENEM 1 GM VIAL IVP SCH ×2 (04:54→12:03)
[2022-07-01] MEDS: INSULIN HUMULIN R 100 UNIT/ML 3ML SQ SCH ×4 (05:49→11:53)
[2022-07-01] MEDS: BUDESONIDE 0.5 MG/2 ML INH IH SCH (06:59)
[2022-07-01] MEDS: 0.9%NACL 10ML VIAL IV SCH (08:00)
[2022-07-01 08:30] VITALS: BP 170/99
[2022-07-01] MEDS: FLUCONAZOLE 400 MG/NS 200 ML 200 ML IV SCH (08:31)
[2022-07-01] MEDS: NICOTINE 21 MG/ 24 HR PATCH TD SCH (08:31)
[2022-07-01] MEDS: LIDOCAINE 5% TOPICAL PATCH TP SCH (08:31)
[2022-07-01] MEDS: VANCOMYCIN 1.5 GM/250 ML BAG 250 ML IV SCH (08:32)
[2022-07-01] MEDS: ASPIRIN 81 MG EC TAB PO SCH (08:32)
[2022-07-01] MEDS: PREGABALIN 100 MG CAPSULE PO SCH (08:32)
[2022-07-01] MEDS: AMIODARONE 200 MG TABLET PO SCH (08:32)
[2022-07-01] MEDS: FENOFIBRATE NANOCRYSTALLIZED 48 MG TAB PO SCH (08:33)
[2022-07-01] MEDS: LISINOPRIL 10 MG TABLET PO SCH (08:33)
[2022-07-01] MEDS: FAMOTIDINE 20MG TAB PO SCH (08:33)
[2022-07-01] MEDS: APIXABAN 5 MG TABLET PO SCH (08:33)
[2022-07-01] MEDS: DIAZEPAM 5 MG TABLET PO SCH (08:33)
[2022-07-01] MEDS: ASCORBIC ACID 500 MG TAB PO SCH (08:33)
[2022-07-01] MEDS: FUROSEMIDE 40 MG TABLET PO SCH (08:33)
[2022-07-01] MEDS: ACETAMINOPHEN 325 MG TAB PO PRN (08:34)
[2022-07-01] MEDS: CLOPIDOGREL 75MG TAB PO SCH (08:34)
[2022-07-01] MEDS: METOPROLOL TARTRATE 25 MG TAB PO SCH (08:34)
[2022-07-01] MEDS: HONEY 1 APPL/ML TUBE TP SCH (09:28)
[2022-07-01 12:35] VITALS: BP 149/85
== END 2022-07-01 14:22 | DRG 853 ==
LOC: EDH 22:07 → EDHIP 23:41 → 4DH 06-15 00:39 → 2AH 06-15 23:38 → 2BH 06-16 03:32 → 2DH 06-27 10:25
PROVIDERS: ADMIT Internal Medicine; ATTEND Internal Medicine
PROC: 0BH18EZ Insertion of Endotracheal Airway into Trachea, Via Natural or Artificial Opening Endoscopic (ICD-10-PCS; principal; 2022-06-16)
PROC: 5A1955Z Respiratory Ventilation, Greater than 96 Consecutive Hours (ICD-10-PCS; 2022-06-16)
PROC: 02HV33Z Insertion of Infusion Device into Superior Vena Cava, Percutaneous Approach (ICD-10-PCS; 2022-06-16)
PROC: 5A09357 Assistance with Respiratory Ventilation, Less than 24 Consecutive Hours, Continuous Positive Airway Pressure (ICD-10-PCS; 2022-06-16)
PROC: 0Y6H0Z1 Detachment at Right Lower Leg, High, Open Approach (ICD-10-PCS; 2022-06-18)
PROC: 5A09357 Assistance with Respiratory Ventilation, Less than 24 Consecutive Hours, Continuous Positive Airway Pressure (ICD-10-PCS; 2022-06-23)
PROC: 0KBS0ZZ Excision of Right Lower Leg Muscle, Open Approach (ICD-10-PCS; 2022-06-25)
PROC: 02HV33Z Insertion of Infusion Device into Superior Vena Cava, Percutaneous Approach (ICD-10-PCS; 2022-06-25)
PROC: 5A09357 Assistance with Respiratory Ventilation, Less than 24 Consecutive Hours, Continuous Positive Airway Pressure (ICD-10-PCS; 2022-06-26)
PROC: 5A09357 Assistance with Respiratory Ventilation, Less than 24 Consecutive Hours, Continuous Positive Airway Pressure (ICD-10-PCS; 2022-06-27)
DX: A41.9 Sepsis, unspecified organism (principal); E43 Unspecified severe protein-calorie malnutrition; J10.00 Influenza due to other identified influenza virus with unspecified type of pneumonia; J96.01 Acute respiratory failure with hypoxia; R65.21 Severe sepsis with septic shock; J96.91 Respiratory failure, unspecified with hypoxia; L03.115 Cellulitis of right lower limb; N17.9 Acute kidney failure, unspecified; M62.82 Rhabdomyolysis; E87.1 Hypo-osmolality and hyponatremia; E87.29 Other acidosis; E72.20 Disorder of urea cycle metabolism, unspecified; E87.4 Mixed disorder of acid-base balance; E11.52 Type 2 diabetes mellitus with diabetic peripheral angiopathy with gangrene; E87.0 Hyperosmolality and hypernatremia; I70.261 Atherosclerosis of native arteries of extremities with gangrene, right leg; J98.11 Atelectasis; L97.919 Non-pressure chronic ulcer of unspecified part of right lower leg with unspecified severity; M86.8X7 Other osteomyelitis, ankle and foot; R65.20 Severe sepsis without septic shock; Z79.01 Long term (current) use of anticoagulants; I48.0 Paroxysmal atrial fibrillation; J10.1 Influenza due to other identified influenza virus with other respiratory manifestations; D64.9 Anemia, unspecified; E11.622 Type 2 diabetes mellitus with other skin ulcer; E11.65 Type 2 diabetes mellitus with hyperglycemia; E11.69 Type 2 diabetes mellitus with other specified complication; E78.00 Pure hypercholesterolemia, unspecified; E83.42 Hypomagnesemia; E87.6 Hypokalemia; F43.10 Post-traumatic stress disorder, unspecified; G47.00 Insomnia, unspecified; I11.9 Hypertensive heart disease without heart failure; I25.10 Atherosclerotic heart disease of native coronary artery without angina pectoris; K59.00 Constipation, unspecified; L98.429 Non-pressure chronic ulcer of back with unspecified severity; S30.0XXA Contusion of lower back and pelvis, initial encounter; W57.XXXA Bitten or stung by nonvenomous insect and other nonvenomous arthropods, initial encounter; Z74.01 Bed confinement status; Z79.4 Long term (current) use of insulin; Z79.899 Other long term (current) drug therapy; Z83.3 Family history of diabetes mellitus; Z89.511 Acquired absence of right leg below knee; Z68.26 Body mass index [BMI] 26.0-26.9, adult
CPT/HCPCS: 31500; 36415; 36600; 71045; 71270; 73590; 73706; 76700; 80048; 80053; 80162; 80202; 81001; 82010; 82140; 82435; 82550; 82570; 82728; 82803; 82947; 82948; 83036; 83540; 83550; 83605; 83735; 83880; 83930; 83935; 83970; 84132; 84145; 84295; 84300; 84484; 85014; 85018; 85025; 85027; 85378; 85610; 85651; 85730; 86140; 86850; 86900; 86901; 86923; 87040; 87070; 87071; 87076; 87077; 87088; 87186; 87205; 87635; 87804; 93005; 93306; 93356; 93926; 93970; 94002; 94003; 94640; 94660; 94668; 96361; 96365; 96366; 96375; 96376; 97039; 99291; C1751; C1894; G0378; J0171; J0282; J0360; J0610; J0696; J1160; J1450; J1644; J1650; J1720; J1815; J1940; J2185; J2250; J2270; J2370; J2405; J2543; J2704; J2920; J3010; J3370; J3475; J3480; J3490; J7030; J7050; J7060; J7070; J7120; J7512; P9016; P9045; P9046; Q9967

== ENCOUNTER 2022-08-10 21:32 | Inpatient (IN) | payer OTHER ==
[~2022-08-10] VITALS: Ht 170.2 cm; Wt 66.7 kg
[~2022-08-10 21:32] MED LIST changes: -CEPH500B PO; -CILO50TA2 PO; -INSLAN SQ; -METF-444 PO; -METO25 PO; -OMEP-420 PO
[2022-08-11 01:35] VITALS: BP 132/77
[2022-08-11] MEDS ORDERED: ACETAMINOPHEN 325 MG TAB PO PRN ×2 (02:30)
[2022-08-11] MEDS ORDERED: DEXTROSE 50%-WATER 50 ML DISP.SYRIN IV PRN (02:30)
[2022-08-11] MEDS ORDERED: NITROGLYCERIN 0.4 MG SL TAB SL PRN (02:30)
[2022-08-11] MEDS ORDERED: GLUCAGON 1MG KIT 1 MG ML IM PRN (02:30)
[2022-08-11 02:58] LABS: BASOPHILS % (AUTO) 1.1 % (0.0-5.0); EOSINOPHILS % (AUTO) 3.7 % (0.0-8.0); HEMATOCRIT 34.6 % (42-54); LYMPHOCYTES % (AUTO) 23.7 % (21.0-51.0); MEAN CORPUSCULAR HEMOGLOBIN 27.1 pg (27.0-33.0); MEAN CORPUSCULAR HGB CONC 31.8 g/dL (32.0-36.0); MEAN CORPUSCULAR VOLUME 85.2 fL (79-99); MONOCYTES % (AUTO) 9.6 % (3.0-13.0); NEUTROPHILS % (AUTO) 61.6 % (40.0-77.0); PLATELET COUNT (AUTO) 405 K/uL (130-400); RED BLOOD CELL COUNT(AUTO) 4.06 MIL/uL (4.50-6.20); WHITE BLOOD COUNT (AUTO) 11.8 K/uL (4.8-10.8)
[2022-08-11 03:11] LABS: ALBUMIN 1.7 g/dL (3.5-5.0); CREATININE 0.8 mg/dL (0.5-1.5); MAGNESIUM 1.3 mg/dL (1.80-2.40); TOTAL PROTEIN, SERUM 5.3 g/dL (6.0-8.3)
[2022-08-11 03:12] LABS: POTASSIUM 2.7 mmol/L (3.5-5.1)
[2022-08-11 03:13] LABS: INR 1.15 (0.85-1.15); PROTHROMBIN TIME 12.4 SEC (9.6-11.6)
[2022-08-11 03:14] LABS: PARTIAL THROMBOPLASTIN TIME 33.2 SEC (26.3-35.5)
[2022-08-11] MEDS: HYDROMORPHONE 0.5 MG SYG (0.5MG/0.5ML) IVP PRN ×3 (03:14→18:08)
[2022-08-11] MEDS ORDERED: MAGNESIUM 2GM PREMIX 50ML 50 ML IV PRN (03:30)
[2022-08-11 03:34] VITALS: BP 128/69
[2022-08-11] MEDS: POTASSIUM CHLORIDE 20MEQ/100ML 100 ML IV PRN ×2 (04:06→10:34)
[2022-08-11 05:02] LABS: HEMOGLOBIN A1C 7.8 % (4.0-6.0)
[2022-08-11] MEDS: INSULIN HUMULIN R 100 UNIT/ML 3ML SQ SCH ×4 (07:30→21:15)
[2022-08-11] MEDS: FAMOTIDINE 20MG TAB PO SCH ×2 (07:54→21:14)
[2022-08-11 08:00] VITALS: BP 173/84
[2022-08-11] MEDS ORDERED: TRAM50TA4 PO (08:38)
[2022-08-11] MEDS ORDERED: ONDA4AMP IJ (08:38)
[2022-08-11] MEDS ORDERED: MIRT-72 PO (08:38)
[2022-08-11] MEDS ORDERED: DULO30CA52 PO (08:38)
[2022-08-11] MEDS ORDERED: METO25TA6 PO (08:38)
[2022-08-11] MEDS ORDERED: GABA-529 PO (08:38)
[2022-08-11] MEDS ORDERED: AUD IH (08:38)
[2022-08-11] MEDS ORDERED: TIGE50VI4 IV (08:38)
[2022-08-11] MEDS ORDERED: LORA2DIS5 IJ (08:38)
[2022-08-11] MEDS ORDERED: NITR0.4T50 SL (08:38)
[2022-08-11] MEDS ORDERED: MIDO10TA PO (08:38)
[2022-08-11] MEDS ORDERED: SANTO TP (08:38)
[2022-08-11] MEDS ORDERED: FURO20TA4 PO (08:38)
[2022-08-11] MEDS ORDERED: INSREG SQ (08:38)
[2022-08-11] MEDS ORDERED: DAKINS.5S MISC (08:38)
[2022-08-11] MEDS ORDERED: AEC81 PO (08:38)
[2022-08-11] MEDS ORDERED: MORP2SYR IV (08:38)
[2022-08-11] MEDS ORDERED: ACET-3673 PO (08:38)
[2022-08-11] MEDS ORDERED: AMIO200T68 PO (08:38)
[2022-08-11] MEDS ORDERED: NYST5ORA7 PO (08:38)
[2022-08-11] MEDS ORDERED: ASCO500T10 PO (08:38)
[2022-08-11] MEDS ORDERED: DIGO0.12 PO (08:38)
[2022-08-11] MEDS ORDERED: FAMO20TA8 PO (08:38)
[2022-08-11] MEDS ORDERED: LACT10SO9 PO (08:38)
[2022-08-11] MEDS ORDERED: NICO-776 TD (08:38)
[2022-08-11] MEDS ORDERED: APIX5TAB PO (08:38)
[2022-08-11] MEDS ORDERED: TRAZ-185 PO (08:38)
[2022-08-11] MEDS ORDERED: [UNRECOGNIZED DRUG - CODE] IV (08:38)
[2022-08-11] MEDS ORDERED: ATOR10 PO (08:38)
[2022-08-11 10:27] LABS: MAGNESIUM 1.7 mg/dL (1.80-2.40); POTASSIUM 3.1 mmol/L (3.5-5.1)
[2022-08-11 12:00] VITALS: BP 135/87
[2022-08-11 12:38] LABS: APPEARANCE,URINE CLEAR (CLEAR); BILIRUBIN,URINE NEGATIVE (NEGATIVE); COLOR,URINE LIGHT-YELLOW (YELLOW); GLUCOSE, URINE (UA) NEGATIVE (NEGATIVE); KETONES,URINE NEGATIVE (NEGATIVE); LEUKOCYTE ESTERASE ,URINE NEGATIVE Leu/uL (NEGATIVE); NITRATE,URINE NEGATIVE (NEGATIVE); OCCULT BLOOD,URINE NEGATIVE (NEGATIVE); PH,URINE 6.5 (5.0-8.0); PROTEIN,URINE NEGATIVE (NEGATIVE); UROBILINOGEN,URINE 0.2 mg/dL (0.2-1.0)
[2022-08-11] MEDS ORDERED: POTASSIUM CHLORIDE 20 MEQ/100 ML BAG IV SCH (13:00)
[2022-08-11] MEDS ORDERED: COMPOUND IV MISC 1 EACH IVSOLN MISC PRN (13:00)
[2022-08-11 13:03] LABS: BACTERIA,URINE RARE /HPF (None Seen); RBC,URINE 0-1 /HPF (0-1)
[2022-08-11] MEDS ORDERED: POTASSIUM CHLORIDE 20MEQ/100ML 100 ML IV SCH (13:30)
[2022-08-11 16:00] VITALS: BP 136/72
[2022-08-11] MEDS: TIGECYCLINE 50 MG in 0.9%NACL 100ML 100 ML IV SCH ×2 (16:31→21:15)
[2022-08-11] MEDS ORDERED: HONEY 1 APPL/ML TUBE TP SCH (18:00)
[2022-08-11 19:52] VITALS: BP 130/72
[2022-08-11] MEDS ORDERED: TIGECYCLINE 50 MG IV SCH (21:00)
[2022-08-11] MEDS: ONDANSETRON 4MG INJ IV PRN (21:14)
[2022-08-12] VITALS (7 sets, daily range): BP systolic 100–138; BP diastolic 50–87
[2022-08-12 06:00] LABS: HEMATOCRIT 31.3 % (42-54); MEAN CORPUSCULAR HEMOGLOBIN 27.2 pg (27.0-33.0); MEAN CORPUSCULAR HGB CONC 31.9 g/dL (32.0-36.0); MEAN CORPUSCULAR VOLUME 85.3 fL (79-99); RED BLOOD CELL COUNT(AUTO) 3.67 MIL/uL (4.50-6.20); RED CELL DISTRIBUTION WIDTH 19.3 % (11.0-15.5); WHITE BLOOD COUNT (AUTO) 11.4 K/uL (4.8-10.8)
[2022-08-12 06:31] LABS: ALBUMIN 1.6 g/dL (3.5-5.0); CREATININE 0.8 mg/dL (0.5-1.5); MAGNESIUM 1.6 mg/dL (1.80-2.40); TOTAL PROTEIN, SERUM 5.1 g/dL (6.0-8.3)
[2022-08-12 06:39] LABS: POTASSIUM 2.8 mmol/L (3.5-5.1)
[2022-08-12] MEDS: POTASSIUM CHLORIDE 20MEQ/100ML 100 ML IV PRN ×2 (06:50→12:17)
[2022-08-12] MEDS: INSULIN HUMULIN R 100 UNIT/ML 3ML SQ SCH ×4 (07:25→20:49)
[2022-08-12] MEDS: TIGECYCLINE 50 MG in 0.9%NACL 100ML 100 ML IV SCH ×2 (09:05→20:46)
[2022-08-12] MEDS: FAMOTIDINE 20MG TAB PO SCH ×2 (09:05→20:46)
[2022-08-12] MEDS: MAGNESIUM 2GM PREMIX 50ML 50 ML IV SCH (12:17)
[2022-08-12] MEDS: ONDANSETRON 4MG INJ IV PRN (17:17)
[2022-08-12] MEDS: HYDROMORPHONE 0.5 MG SYG (0.5MG/0.5ML) IVP PRN ×2 (17:22→20:52)
[2022-08-13] VITALS (29 sets, daily range): BP systolic 15–186; BP diastolic 56–100
[2022-08-13] MEDS: INSULIN HUMULIN R 100 UNIT/ML 3ML SQ SCH ×4 (06:30→20:14)
[2022-08-13] MEDS: FAMOTIDINE 20MG TAB PO SCH ×2 (07:57→20:13)
[2022-08-13] MEDS: TIGECYCLINE 50 MG in 0.9%NACL 100ML 100 ML IV SCH ×2 (07:57→20:13)
[2022-08-13 08:04] LABS: ALBUMIN 1.8 g/dL (3.5-5.0); CREATININE 0.8 mg/dL (0.5-1.5); MAGNESIUM 1.8 mg/dL (1.80-2.40); POTASSIUM 3.5 mmol/L (3.5-5.1); TOTAL PROTEIN, SERUM 5.3 g/dL (6.0-8.3)
[2022-08-13 12:22] LABS: HEMATOCRIT 35.6 % (42-54); MEAN CORPUSCULAR HEMOGLOBIN 27.3 pg (27.0-33.0); MEAN CORPUSCULAR VOLUME 85.4 fL (79-99); RED BLOOD CELL COUNT(AUTO) 4.17 MIL/uL (4.50-6.20); RED CELL DISTRIBUTION WIDTH 19.6 % (11.0-15.5); WHITE BLOOD COUNT (AUTO) 13.3 K/uL (4.8-10.8)
[2022-08-13] MEDS ORDERED: FENTANYL CITRATE PF 50 MCG/1 ML 5ML AMP IV ONE (13:46)
[2022-08-13] MEDS ORDERED: MIDAZOLAM HCL 1 MG/ML 2ML VIAL ONE (13:46)
[2022-08-13] MEDS ORDERED: PROPOFOL 10 MG/ML 20ML VIAL IV ONE (13:46)
[2022-08-13] MEDS ORDERED: LIDOCAINE 2%-EPI 1:200,000 20 ML VIAL IJ ONE (13:52)
[2022-08-13] MEDS ORDERED: ROPIVACAINE 0.5% 5MG/ML 30ML IJ ONE (13:52)
[2022-08-13] MEDS ORDERED: CEFTRIAXONE 2GM VIAL IVPB ONE (14:00)
[2022-08-13] MEDS ORDERED: ROCURONIUM 10MG/1ML SYR 10 MG/ML ML ONE (14:14)
[2022-08-13] MEDS ORDERED: CEFTRIAXONE 1G VIAL ONE (14:51)
[2022-08-13] MEDS ORDERED: NEOSTIGMINE 5MG/5ML SYR IV ONE (14:55)
[2022-08-13] MEDS ORDERED: GLYCOPYRROLATE 1 MG/5 ML SYRINGE ONE (14:55)
[2022-08-13] MEDS ORDERED: MEPERIDINE-PF 25 MG/ML SYG ONE ×2 (15:29→15:38)
[2022-08-13] MEDS: ONDANSETRON 4MG INJ IV PRN (15:55)
[2022-08-13] MEDS ORDERED: FENTANYL CITRATE PF 50 MCG/1 ML 2ML VIAL ONE (16:17)
[2022-08-13] MEDS: HYDROMORPHONE 0.5 MG SYG (0.5MG/0.5ML) IVP PRN ×2 (17:40→21:06)
[2022-08-14] MEDS: HYDROMORPHONE 0.5 MG SYG (0.5MG/0.5ML) IVP PRN ×5 (00:24→14:24)
[2022-08-14 03:10] VITALS: BP 121/77
[2022-08-14] MEDS: MAGNESIUM 2GM PREMIX 50ML 50 ML IV SCH (06:00)
[2022-08-14] MEDS: INSULIN HUMULIN R 100 UNIT/ML 3ML SQ SCH ×2 (06:13→11:30)
[2022-08-14 08:00] VITALS: BP 91/62
[2022-08-14] MEDS: FAMOTIDINE 20MG TAB PO SCH (08:29)
[2022-08-14] MEDS: TIGECYCLINE 50 MG in 0.9%NACL 100ML 100 ML IV SCH (08:30)
[2022-08-14] MEDS: HYDROMORPHONE 1 MG INJ ONE ×2 (10:07→10:10)
[2022-08-14 11:49] LABS: HEMATOCRIT 32.5 % (42-54); MEAN CORPUSCULAR HEMOGLOBIN 27.2 pg (27.0-33.0); MEAN CORPUSCULAR HGB CONC 31.1 g/dL (32.0-36.0); MEAN CORPUSCULAR VOLUME 87.6 fL (79-99); RED BLOOD CELL COUNT(AUTO) 3.71 MIL/uL (4.50-6.20); RED CELL DISTRIBUTION WIDTH 19.5 % (11.0-15.5); WHITE BLOOD COUNT (AUTO) 10.7 K/uL (4.8-10.8)
[2022-08-14 12:00] VITALS: BP 137/66
[2022-08-14 13:00] LABS: CREATININE 0.8 mg/dL (0.5-1.5)
[2022-08-14 13:22] LABS: POTASSIUM 2.8 mmol/L (3.5-5.1)
[2022-08-14] MEDS: POTASSIUM CHLORIDE 20MEQ/100ML 100 ML IV PRN (13:25)
[2022-08-14] MEDS ORDERED: PHARMACY COMMUNICATION MISC SCH ×2 (13:30→14:00)
[2022-08-14] MEDS ORDERED: AVIBACTAM IV SCH (14:00)
[2022-08-14] MEDS ORDERED: NACL 0.9% IV SCH (14:00)
[2022-08-14] MEDS ORDERED: CEFTAZIDIME IV SCH (14:00)
[2022-08-14] MEDS ORDERED: LINEZOLID 600 MG/ISO-OSM 300 ML IV SCH (14:00)
[2022-08-14 16:00] VITALS: BP 144/71
== END 2022-08-14 16:00 | DRG 463 ==
LOC: 3DH 08-11 01:37 → OBSVTOIN 08-11 01:37
PROVIDERS: ADMIT Internal Medicine; ATTEND Internal Medicine
PROC: 0JBN0ZZ Excision of Right Lower Leg Subcutaneous Tissue and Fascia, Open Approach (ICD-10-PCS; principal; 2022-08-13 14:10)
DX: T87.81 Dehiscence of amputation stump (principal); L89.153 Pressure ulcer of sacral region, stage 3; I50.32 Chronic diastolic (congestive) heart failure; Z16.19 Resistance to other specified beta lactam antibiotics; Z16.21 Resistance to vancomycin; Z20.822 Contact with and (suspected) exposure to COVID-19; E87.6 Hypokalemia; E83.42 Hypomagnesemia; E11.51 Type 2 diabetes mellitus with diabetic peripheral angiopathy without gangrene; I11.0 Hypertensive heart disease with heart failure; I48.91 Unspecified atrial fibrillation; Y83.5 Amputation of limb(s) as the cause of abnormal reaction of the patient, or of later complication, without mention of misadventure at the time of the procedure; Z89.611 Acquired absence of right leg above knee; Z79.01 Long term (current) use of anticoagulants; Z87.891 Personal history of nicotine dependence; Z89.511 Acquired absence of right leg below knee
CPT/HCPCS: 36415; 80048; 80053; 81001; 82948; 83036; 83735; 84132; 85025; 85027; 85610; 85730; 87040; 87070; 87076; 87077; 87186; 87635; 87641; G0378; J0696; J0714; J1170; J1815; J2175; J2250; J2405; J2704; J2710; J2795; J3010; J3243; J3475; J3480; J3490; J7050

== ENCOUNTER 2022-11-10 09:52 | Emergency (ER) | payer OTHER ==
[~2022-11-10] VITALS: Ht 167.6 cm; Wt 61.2 kg
[~2022-11-10 09:52] MED LIST changes: +AMIO200T68 PO; +CILO50TA2 PO; +DIGO0.12 PO; +DULO30CA52 PO; -DULO60CA64 PO; +EMPA25TA PO; +FURO20TA4 PO; +GABA-529 PO; +LOSA25TA41 PO; +METO25TA6 PO; +OMEP-420 PO; -PREG200C28 PO; +TRAM50TA4 PO
[2022-11-10 09:54] VITALS: BP 182/97; PULSE 91; RESP 18; O2SAT 100
== END 2022-11-10 14:49 | disposition home or self-care (01) ==
LOC: EDH 09:52
DX: S29.9XXA Unspecified injury of thorax, initial encounter (principal); E11.9 Type 2 diabetes mellitus without complications; E78.00 Pure hypercholesterolemia, unspecified; F17.200 Nicotine dependence, unspecified, uncomplicated; Z79.01 Long term (current) use of anticoagulants; Z79.899 Other long term (current) drug therapy; W18.39XA Other fall on same level, initial encounter; Y93.89 Activity, other specified; Y92.89 Other specified places as the place of occurrence of the external cause; Y99.8 Other external cause status
CPT/HCPCS: 71100

== ENCOUNTER 2022-11-18 08:25 | Inpatient (IN) | payer OTHER ==
[~2022-11-18] VITALS: Ht 167.6 cm; Wt 69.4 kg
[2022-11-18] VITALS (10 sets, daily range): PULSE 84–101; RESP 18; O2SAT 98–100
[2022-11-18] MEDS ORDERED: FENTANYL 1000MCG+NS 100ML 100 ML IV ONE (08:43)
[2022-11-18 08:55] LABS: BASOPHILS # (AUTO) 0.13 K/uL (0.00-0.20); BASOPHILS % (AUTO) 0.7 % (0.0-5.0); EOSINOPHILS % (AUTO) 2.7 % (0.0-8.0); HEMATOCRIT 30.1 % (42-54); IMMATURE GRANULOCYTE ABSOLUTE 0.31 K/uL (0-1); LYMPHOCYTES # (AUTO) 2.8 K/uL (1.0-4.8); LYMPHOCYTES % (AUTO) 15.3 % (21.0-51.0); MEAN CORPUSCULAR HGB CONC 30.6 g/dL (32.0-36.0); MEAN CORPUSCULAR VOLUME 91.8 fL (79-99); MONOCYTES % (AUTO) 5.2 % (3.0-13.0); NEUTROPHILS # (AUTO) 13.6 K/uL (1.8-7.7); NEUTROPHILS % (AUTO) 74.4 % (40.0-77.0); PLATELET COUNT (AUTO) 502 K/uL (130-400); RED BLOOD CELL COUNT(AUTO) 3.28 MIL/uL (4.50-6.20); RED CELL DISTRIBUTION WIDTH 18.4 % (11.0-15.5); WHITE BLOOD COUNT (AUTO) 18.3 K/uL (4.8-10.8)
[2022-11-18 09:07] LABS: ALBUMIN 2.3 g/dL (3.5-5.0); BILIRUBIN,TOTAL 0.1 mg/dL (0.2-1.0); CREATININE 0.9 mg/dL (0.5-1.5); MAGNESIUM 1.6 mg/dL (1.80-2.40); POTASSIUM 4.7 mmol/L (3.5-5.1); TOTAL PROTEIN, SERUM 6.6 g/dL (6.0-8.3)
[2022-11-18 09:25] LABS: B-TYPE NATRIURETIC PEPTIDE 568 pg/mL (0-100)
[2022-11-18] MEDS ORDERED: MIDAZOLAM HCL 50 MG in 0.9%NACL 50ML 50 ML IV SCH (09:30)
[2022-11-18] MEDS: MIDAZOLAM 50MG-0.9% NS 50ML 50 ML IV SCH (09:46)
[2022-11-18] MEDS ORDERED: VANCOMYCIN KIT 1 GM/250 ML IV.KIT IV ONE (10:00)
[2022-11-18] MEDS ORDERED: FUROSEMIDE 40MG VIAL IV ONE (10:00)
[2022-11-18] MEDS ORDERED: INSULIN REGULAR, HUMAN 3ML 100 UNIT in 0.9%NACL 100ML 99 ML IV PRN ×4 (10:00→11:30)
[2022-11-18] MEDS ORDERED: ZOSYN 3.375GM +NS 50ML IVPB ONE (10:00)
[2022-11-18 10:40] LABS: COVID19 (SARS ANTIGEN RAPID) PRESUMPTIVE NEGATIVE (NEGATIVE); INFLUENZA TYPE A Negative For Type A (NEGATIVE); INFLUENZA TYPE B Negative For Type B (NEGATIVE)
[2022-11-18] MEDS ORDERED: NOREPINEPHRIN 4MG/NS 250ML 250 ML IV ONE ×2 (10:42→20:49)
[2022-11-18 10:53] LABS: APPEARANCE,URINE CLEAR (CLEAR); BILIRUBIN,URINE NEGATIVE (NEGATIVE); COLOR,URINE COLORLESS (YELLOW); GLUCOSE, URINE (UA) >=1000 mg/dL (NEGATIVE); KETONES,URINE NEGATIVE (NEGATIVE); LEUKOCYTE ESTERASE ,URINE NEGATIVE Leu/uL (NEGATIVE); NITRATE,URINE NEGATIVE (NEGATIVE); OCCULT BLOOD,URINE NEGATIVE (NEGATIVE); PH,URINE 6.5 (5.0-8.0); PROTEIN,URINE 100 mg/dL (NEGATIVE); UROBILINOGEN,URINE 0.2 mg/dL (0.2-1.0)
[2022-11-18 10:55] LABS: ADD UA MICROSCOPIC YES
[2022-11-18 10:56] LABS: BACTERIA,URINE RARE /HPF (None Seen); MUCUS,URINE RARE LPF (None Seen); SQUAMOUS EPITHELIAL CELL,UR RARE /HPF (0-2)
[2022-11-18] MEDS ORDERED: NOREPINEPHRIN 4MG/NS 250ML 250 ML IV SCH ×2 (11:00)
[2022-11-18 11:22] LABS: ABG BASE EXCESS 0.8 mmol/L (-2.0-3.0); ABG HCO3 26.9 mmol/L (21.0-28.0); ABG OXYGEN SATURATION 99.1 % (95.0-99.0); ABG PCO2 49 mmHg (35-48); ABG PH 7.354 (7.35-7.450); CARBON MONOXIDE 0.3; HHb 0.9; PO2, ARTERIAL BG 199.2 mmHg (83.0-108.0); VENT MODE, BG AC (ROOM AIR)
[2022-11-18] MEDS: FENTANYL 1000MCG+NS 100ML IV.SOLN IV SCH (11:29)
[2022-11-18] MEDS ORDERED: ONDANSETRON 4MG INJ IV PRN (11:30)
[2022-11-18] MEDS ORDERED: DEXTROSE 50%-WATER 50 ML DISP.SYRIN IV PRN ×2 (11:30→18:00)
[2022-11-18] MEDS ORDERED: GLUCAGON 1MG KIT 1 MG ML IM PRN ×2 (11:30→18:00)
[2022-11-18] MEDS: 0.9%NACL 1000ML 1,000 ML IV SCH (12:23)
[2022-11-18] MEDS ORDERED: IPRATROPIUM/ALBUTEROL SULFATE 3 ML SOLUTION IH SCH (14:00)
[2022-11-18] MEDS ORDERED: MAGNESIUM 2GM PREMIX 50ML 50 ML IV PRN (18:00)
[2022-11-18] MEDS ORDERED: KCL 20 MEQ ERTAB PO PRN (18:00)
[2022-11-18] MEDS ORDERED: POTASSIUM CHLORIDE 20MEQ/100ML 100 ML IV PRN ×2 (18:00)
[2022-11-18] MEDS ORDERED: 0.9%NACL 50ML IV SCH (18:00)
[2022-11-18] MEDS ORDERED: IPRATROPIUM/ALBUTEROL SULFATE 3 ML SOLUTION IH ONE (18:10)
[2022-11-18] MEDS: IPRATROPIUM/ALBUTEROL SULFATE 3 ML SOLUTION IH SCH ×2 (19:04→23:06)
[2022-11-18] MEDS: ENOXAPARIN SODIUM 30 MG/0.3 ML SQ SCH (20:39)
[2022-11-18] MEDS: FAMOTIDINE 20MG VIAL IV SCH (20:39)
[2022-11-18] MEDS: INSULIN GLARGINE 100 UNITS/ML 10 ML VIAL SQ SCH (20:40)
[2022-11-18] MEDS: ZOSYN 3.375GM +NS 50ML IVPB SCH (20:43)
[2022-11-18] MEDS: SODIUM HYPOCHLORITE 0.25% [HALF STRENGTH] 473 ML TOPICAL SOLN TP SCH (20:44)
[2022-11-18 20:47] LABS: ABG BASE EXCESS 4.5 mmol/L (-2.0-3.0); ABG HCO3 28.6 mmol/L (21.0-28.0); ABG OXYGEN SATURATION 98.7 % (95.0-99.0); ABG PCO2 41 mmHg (35-48); ABG PH 7.465 (7.35-7.450); DEVICE COMMENT LR; PO2, ARTERIAL BG 128.8 mmHg (83.0-108.0); VENT MODE, BG ACVC (ROOM AIR)
[2022-11-18] MEDS ORDERED: INSULIN HUMULIN R 100 UNIT/ML 3ML SQ SCH (21:00)
[2022-11-18 21:49] LABS: BASOPHILS # (AUTO) 0.13 K/uL (0.00-0.20); BASOPHILS % (AUTO) 0.5 % (0.0-5.0); EOSINOPHILS # (AUTO) 0.37 K/uL (0.00-0.70); EOSINOPHILS % (AUTO) 1.6 % (0.0-8.0); HEMATOCRIT 29.1 % (42-54); IMMATURE GRANULOCYTE ABSOLUTE 0.17 K/uL (0-1); LYMPHOCYTES # (AUTO) 1.8 K/uL (1.0-4.8); LYMPHOCYTES % (AUTO) 7.4 % (21.0-51.0); MEAN CORPUSCULAR HEMOGLOBIN 28.1 pg (27.0-33.0); MEAN CORPUSCULAR HGB CONC 31.3 g/dL (32.0-36.0); MEAN CORPUSCULAR VOLUME 89.8 fL (79-99); MONOCYTES # (AUTO) 1.6 K/uL (0.1-1.0); MONOCYTES % (AUTO) 6.6 % (3.0-13.0); NEUTROPHILS # (AUTO) 19.8 K/uL (1.8-7.7); NEUTROPHILS % (AUTO) 83.2 % (40.0-77.0); PLATELET COUNT (AUTO) 461 K/uL (130-400); RED BLOOD CELL COUNT(AUTO) 3.24 MIL/uL (4.50-6.20); RED CELL DISTRIBUTION WIDTH 18.5 % (11.0-15.5); WHITE BLOOD COUNT (AUTO) 23.8 K/uL (4.8-10.8)
[2022-11-18 22:04] LABS: CREATININE 0.8 mg/dL (0.5-1.5); POTASSIUM 3.6 mmol/L (3.5-5.1)
[2022-11-18 22:10] LABS: ALBUMIN 2.1 g/dL (3.5-5.0); BILIRUBIN,TOTAL 0.2 mg/dL (0.2-1.0); MAGNESIUM 1.6 mg/dL (1.80-2.40); TOTAL PROTEIN, SERUM 6.1 g/dL (6.0-8.3)
[2022-11-19] VITALS (70 sets, daily range): BP systolic 76–173; BP diastolic 35–94; PULSE 67–121; RESP 18–72; O2SAT 96–100
[2022-11-19] MEDS ORDERED: NOREPINEPHRIN 4MG/NS 250ML 250 ML IV ONE ×3 (00:37→15:09)
[2022-11-19] MEDS: 0.9%NACL 1000ML 1,000 ML IV SCH ×2 (00:50→12:32)
[2022-11-19] MEDS: ZOSYN 3.375GM +NS 50ML IVPB SCH ×3 (03:21→17:04)
[2022-11-19] MEDS: MIDAZOLAM 50MG-0.9% NS 50ML 50 ML IV SCH ×4 (04:48→22:44)
[2022-11-19] MEDS: FENTANYL 1000MCG+NS 100ML IV.SOLN IV SCH ×4 (04:49→22:43)
[2022-11-19] MEDS: IPRATROPIUM/ALBUTEROL SULFATE 3 ML SOLUTION IH SCH ×4 (06:00→23:13)
[2022-11-19] MEDS: INSULIN HUMULIN R 100 UNIT/ML 3ML SQ SCH ×4 (06:20→18:00)
[2022-11-19 07:01] LABS: HEMATOCRIT 28.2 % (42-54); MEAN CORPUSCULAR HEMOGLOBIN 28.3 pg (27.0-33.0); MEAN CORPUSCULAR HGB CONC 31.6 g/dL (32.0-36.0); MEAN CORPUSCULAR VOLUME 89.8 fL (79-99); RED BLOOD CELL COUNT(AUTO) 3.14 MIL/uL (4.50-6.20); RED CELL DISTRIBUTION WIDTH 18.8 % (11.0-15.5); WHITE BLOOD COUNT (AUTO) 22.3 K/uL (4.8-10.8)
[2022-11-19 07:10] LABS: ABG HCO3 24.2 mmol/L (21.0-28.0); ABG OXYGEN SATURATION 97.7 % (95.0-99.0); ABG PCO2 35 mmHg (35-48); ABG PH 7.464 (7.35-7.450); DEVICE COMMENT RBGISSELA; PO2, ARTERIAL BG 95.7 mmHg (83.0-108.0); VENT MODE, BG AC (ROOM AIR)
[2022-11-19 07:10] LABS: HEMOGLOBIN A1C 6.7 % (4.0-6.0)
[2022-11-19 07:18] LABS: BILIRUBIN,TOTAL 0.4 mg/dL (0.2-1.0); CREATININE 0.7 mg/dL (0.5-1.5); POTASSIUM 3.7 mmol/L (3.5-5.1); TOTAL PROTEIN, SERUM 6.1 g/dL (6.0-8.3)
[2022-11-19] MEDS: MAGNESIUM 2GM PREMIX 50ML 50 ML IV PRN (07:47)
[2022-11-19] MEDS: ACETAMINOPHEN 325 MG TAB PO PRN ×3 (07:48→22:08)
[2022-11-19] MEDS: INSULIN GLARGINE 100 UNITS/ML 10 ML VIAL SQ SCH ×2 (08:18→20:53)
[2022-11-19] MEDS: ENOXAPARIN SODIUM 30 MG/0.3 ML SQ SCH ×2 (08:19→20:49)
[2022-11-19] MEDS: FAMOTIDINE 20MG VIAL IV SCH ×2 (08:19→20:48)
[2022-11-19] MEDS: SODIUM HYPOCHLORITE 0.25% [HALF STRENGTH] 473 ML TOPICAL SOLN TP SCH ×2 (08:20→20:50)
[2022-11-19] MEDS ORDERED: METOPROLOL TARTRATE 1 MG/ML 5ML VIAL IV STA (09:23)
[2022-11-19] MEDS ORDERED: PREG200C28 PO (09:34)
[2022-11-19] MEDS ORDERED: METOPROLOL TARTRATE 1 MG/ML 5ML VIAL IV ONE (09:38)
[2022-11-19] MEDS ORDERED: METOPROLOL TARTRATE 25 MG TAB ONE (09:38)
[2022-11-19] MEDS: METOPROLOL TARTRATE 25 MG TAB PO SCH ×2 (09:47→20:49)
[2022-11-19] MEDS ORDERED: PHENYLEPHRINE HCL 100 MG in 0.9% NACL 250ML 250 ML IV SCH (10:00)
[2022-11-19] MEDS ORDERED: 0.9% NACL 500ML IV.SOLN 500 ML IV SCH (10:00)
[2022-11-19 13:17] LABS: INR 0.97 (0.85-1.15); PARTIAL THROMBOPLASTIN TIME 34.4 SEC (26.3-35.5); PROTHROMBIN TIME 11.3 SEC (9.6-11.6)
[2022-11-19] MEDS ORDERED: VANCOMYCIN PROTOCOL PER PHARMACY IV SCH (17:00)
[2022-11-19] MEDS ORDERED: VANCOMYCIN 1.5 GM/250 ML BAG 250 ML IV ONE (17:20)
[2022-11-19] MEDS: NOREPINEPHRIN 4MG/NS 250ML 250 ML IV SCH (19:16)
[2022-11-19] MEDS: 0.9%NACL 10ML VIAL IV SCH (20:48)
[2022-11-20] VITALS (111 sets, daily range): BP systolic 81–152; BP diastolic 39–86; PULSE 61–87; RESP 16–44; O2SAT 100
[2022-11-20] MEDS: ZOSYN 3.375GM +NS 50ML IVPB SCH ×3 (02:04→18:12)
[2022-11-20] MEDS: FENTANYL 1000MCG+NS 100ML IV.SOLN IV SCH ×5 (03:33→23:51)
[2022-11-20 04:38] LABS: BASOPHILS # (AUTO) 0.08 K/uL (0.00-0.20); BASOPHILS % (AUTO) 0.6 % (0.0-5.0); EOSINOPHILS # (AUTO) 0.37 K/uL (0.00-0.70); EOSINOPHILS % (AUTO) 2.9 % (0.0-8.0); HEMATOCRIT 22.7 % (42-54); IMMATURE GRANULOCYTE ABSOLUTE 0.07 K/uL (0-1); LYMPHOCYTES # (AUTO) 1.7 K/uL (1.0-4.8); LYMPHOCYTES % (AUTO) 13.5 % (21.0-51.0); MEAN CORPUSCULAR HEMOGLOBIN 28.1 pg (27.0-33.0); MEAN CORPUSCULAR HGB CONC 30.8 g/dL (32.0-36.0); MEAN CORPUSCULAR VOLUME 91.2 fL (79-99); MONOCYTES # (AUTO) 1.2 K/uL (0.1-1.0); MONOCYTES % (AUTO) 9.2 % (3.0-13.0); NEUTROPHILS # (AUTO) 9.3 K/uL (1.8-7.7); NEUTROPHILS % (AUTO) 73.3 % (40.0-77.0); PLATELET COUNT (AUTO) 350 K/uL (130-400); RED BLOOD CELL COUNT(AUTO) 2.49 MIL/uL (4.50-6.20); RED CELL DISTRIBUTION WIDTH 19.2 % (11.0-15.5); WHITE BLOOD COUNT (AUTO) 12.8 K/uL (4.8-10.8)
[2022-11-20 04:56] LABS: ALBUMIN 1.4 g/dL (3.5-5.0); BILIRUBIN,TOTAL 0.4 mg/dL (0.2-1.0); CREATININE 0.7 mg/dL (0.5-1.5); MAGNESIUM 1.9 mg/dL (1.80-2.40); POTASSIUM 3.2 mmol/L (3.5-5.1); TOTAL PROTEIN, SERUM 4.9 g/dL (6.0-8.3)
[2022-11-20] MEDS: VANCOMYCIN KIT 1 GM/250 ML IV.KIT IV SCH ×2 (05:01→15:03)
[2022-11-20] MEDS: NOREPINEPHRIN 4MG/NS 250ML 250 ML IV SCH ×2 (05:07→20:56)
[2022-11-20] MEDS: INSULIN HUMULIN R 100 UNIT/ML 3ML SQ SCH ×4 (06:00→17:23)
[2022-11-20] MEDS: IPRATROPIUM/ALBUTEROL SULFATE 3 ML SOLUTION IH SCH ×3 (06:19→19:07)
[2022-11-20] MEDS: INSULIN GLARGINE 100 UNITS/ML 10 ML VIAL SQ SCH ×3 (06:28→20:34)
[2022-11-20] MEDS: POTASSIUM CHLORIDE 20MEQ/100ML 100 ML IV PRN (06:31)
[2022-11-20] MEDS: FAMOTIDINE 20MG VIAL IV SCH ×2 (07:42→20:23)
[2022-11-20] MEDS: 0.9%NACL 10ML VIAL IV SCH ×2 (07:42→20:23)
[2022-11-20] MEDS: POTASSIUM CHLORIDE 10% ELIXIR 20 MEQ/15 ML UDCUP PO PRN ×3 (07:42→15:05)
[2022-11-20] MEDS: AMIODARONE 200 MG TABLET PO SCH (07:42)
[2022-11-20] MEDS: METOPROLOL TARTRATE 25 MG TAB PO SCH ×2 (07:43→20:21)
[2022-11-20] MEDS: ENOXAPARIN SODIUM 30 MG/0.3 ML SQ SCH ×2 (07:43→20:23)
[2022-11-20] MEDS: MAGNESIUM 2GM PREMIX 50ML 50 ML IV PRN (07:44)
[2022-11-20] MEDS: SODIUM HYPOCHLORITE 0.25% [HALF STRENGTH] 473 ML TOPICAL SOLN TP SCH ×2 (07:45→20:49)
[2022-11-20] MEDS: MIDAZOLAM 50MG-0.9% NS 50ML 50 ML IV SCH ×2 (09:11→23:48)
[2022-11-20 13:58] LABS: HEMATOCRIT 23.4 % (42-54)
[2022-11-20] MEDS: CHLORHEXIDINE GLUCONATE 473 ML MOUTHWASH MM SCH ×2 (15:04→20:23)
[2022-11-20] MEDS: FUROSEMIDE 20MG VIAL IV SCH (15:04)
[2022-11-20] MEDS ORDERED: VANCOMYCIN KIT 1 GM/250 ML IV.KIT IV SCH (16:00)
[2022-11-20] MEDS: ACETAMINOPHEN 325 MG TAB PO PRN (20:23)
[2022-11-20] MEDS: ARTIFICIAL TEARS 3.5 GM OINTMENT OU SCH (21:00)
[2022-11-21] VITALS (107 sets, daily range): BP systolic 72–161; BP diastolic 34–85; PULSE 68–153; RESP 18–137; O2SAT 97–100
[2022-11-21] MEDS: INSULIN HUMULIN R 100 UNIT/ML 3ML SQ SCH ×4 (00:09→18:00)
[2022-11-21] MEDS: IPRATROPIUM/ALBUTEROL SULFATE 3 ML SOLUTION IH SCH ×5 (00:56→23:02)
[2022-11-21] MEDS: FUROSEMIDE 20MG VIAL IV SCH ×2 (02:13→13:29)
[2022-11-21] MEDS: CHLORHEXIDINE GLUCONATE 473 ML MOUTHWASH MM SCH ×4 (02:15→20:21)
[2022-11-21] MEDS: ZOSYN 3.375GM +NS 50ML IVPB SCH ×3 (02:17→17:51)
[2022-11-21 04:14] LABS: BASOPHILS # (AUTO) 0.02 K/uL (0.00-0.20); BASOPHILS % (AUTO) 0.2 % (0.0-5.0); EOSINOPHILS # (AUTO) 0.37 K/uL (0.00-0.70); EOSINOPHILS % (AUTO) 3.8 % (0.0-8.0); HEMATOCRIT 22.7 % (42-54); IMMATURE GRANULOCYTE ABSOLUTE 0.03 K/uL (0-1); LYMPHOCYTES # (AUTO) 1.2 K/uL (1.0-4.8); LYMPHOCYTES % (AUTO) 12.5 % (21.0-51.0); MEAN CORPUSCULAR HEMOGLOBIN 28.6 pg (27.0-33.0); MEAN CORPUSCULAR HGB CONC 31.3 g/dL (32.0-36.0); MEAN CORPUSCULAR VOLUME 91.5 fL (79-99); MONOCYTES % (AUTO) 10.4 % (3.0-13.0); NEUTROPHILS # (AUTO) 7.1 K/uL (1.8-7.7); NEUTROPHILS % (AUTO) 72.8 % (40.0-77.0); PLATELET COUNT (AUTO) 347 K/uL (130-400); RED BLOOD CELL COUNT(AUTO) 2.48 MIL/uL (4.50-6.20); RED CELL DISTRIBUTION WIDTH 18.8 % (11.0-15.5); WHITE BLOOD COUNT (AUTO) 9.7 K/uL (4.8-10.8)
[2022-11-21 04:33] LABS: ALBUMIN 1.4 g/dL (3.5-5.0); BILIRUBIN,TOTAL 0.3 mg/dL (0.2-1.0); CREATININE 0.9 mg/dL (0.5-1.5); MAGNESIUM 2.1 mg/dL (1.80-2.40); POTASSIUM 3.9 mmol/L (3.5-5.1); TOTAL PROTEIN, SERUM 5.4 g/dL (6.0-8.3)
[2022-11-21 04:40] LABS: VANCOMYCIN TROUGH 22.9 UG/ML (10.0-20.0)
[2022-11-21] MEDS ORDERED: PHARMACY COMMUNICATION MISC SCH (05:00)
[2022-11-21] MEDS: FENTANYL 1000MCG+NS 100ML IV.SOLN IV SCH ×4 (06:06→23:26)
[2022-11-21] MEDS: INSULIN GLARGINE 100 UNITS/ML 10 ML VIAL SQ SCH ×2 (07:30→20:19)
[2022-11-21] MEDS: FAMOTIDINE 20MG VIAL IV SCH ×2 (08:19→20:10)
[2022-11-21] MEDS: ENOXAPARIN SODIUM 30 MG/0.3 ML SQ SCH ×2 (08:19→20:11)
[2022-11-21] MEDS: AMIODARONE 200 MG TABLET PO SCH (08:19)
[2022-11-21] MEDS: METOPROLOL TARTRATE 25 MG TAB PO SCH ×2 (08:19→20:10)
[2022-11-21] MEDS: 0.9%NACL 10ML VIAL IV SCH ×2 (08:20→20:22)
[2022-11-21] MEDS: SODIUM HYPOCHLORITE 0.25% [HALF STRENGTH] 473 ML TOPICAL SOLN TP SCH ×2 (08:21→20:21)
[2022-11-21 10:21] LABS: ABG BASE EXCESS -0.9 mmol/L (-2.0-3.0); ABG HCO3 22.7 mmol/L (21.0-28.0); ABG OXYGEN SATURATION 98.1 % (95.0-99.0); ABG PCO2 35 mmHg (35-48); ABG PH 7.432 (7.35-7.450); DEVICE COMMENT RR; PO2, ARTERIAL BG 107.5 mmHg (83.0-108.0); VENT MODE, BG AC-VC (ROOM AIR)
[2022-11-21] MEDS: VANCOMYCIN 1.5 GM/250 ML BAG 250 ML IV SCH (17:52)
[2022-11-21] MEDS: NOREPINEPHRIN 4MG/NS 250ML 250 ML IV SCH (18:09)
[2022-11-21] MEDS: ARTIFICIAL TEARS 3.5 GM OINTMENT OU SCH (20:22)
[2022-11-21] MEDS ORDERED: METOPROLOL TARTRATE 1 MG/ML 5ML VIAL IV ONE ×2 (20:30→20:35)
[2022-11-21] MEDS: MIDAZOLAM 50MG-0.9% NS 50ML 50 ML IV SCH (21:31)
[2022-11-22] VITALS (94 sets, daily range): BP systolic 86–182; BP diastolic 38–142; PULSE 61–133; RESP 12–175; O2SAT 95–100
[2022-11-22] MEDS ORDERED: AMIODARONE 150MG VIAL ONE (02:23)
[2022-11-22] MEDS: ZOSYN 3.375GM +NS 50ML IVPB SCH ×3 (02:25→20:46)
[2022-11-22] MEDS: FUROSEMIDE 20MG VIAL IV SCH ×2 (02:26→13:03)
[2022-11-22] MEDS ORDERED: AMIODARONE 900MG VIAL IV ONE (02:26)
[2022-11-22] MEDS: CHLORHEXIDINE GLUCONATE 473 ML MOUTHWASH MM SCH ×4 (02:27→20:42)
[2022-11-22] MEDS ORDERED: AMIODARONE 900MG VIAL 150 MG in DEXTROSE 5%-WATER 100 ML IV ONE (02:30)
[2022-11-22] MEDS ORDERED: AMIODARONE 900MG VIAL 360 MG in DEXTROSE 5%-WATER 200 ML IV SCH (02:40)
[2022-11-22 04:23] LABS: BASOPHILS # (AUTO) 0.03 K/uL (0.00-0.20); BASOPHILS % (AUTO) 0.4 % (0.0-5.0); EOSINOPHILS # (AUTO) 0.29 K/uL (0.00-0.70); EOSINOPHILS % (AUTO) 3.6 % (0.0-8.0); HEMATOCRIT 23.8 % (42-54); IMMATURE GRANULOCYTE ABSOLUTE 0.02 K/uL (0-1); LYMPHOCYTES % (AUTO) 12.8 % (21.0-51.0); MEAN CORPUSCULAR HEMOGLOBIN 27.9 pg (27.0-33.0); MEAN CORPUSCULAR HGB CONC 31.1 g/dL (32.0-36.0); MEAN CORPUSCULAR VOLUME 89.8 fL (79-99); MONOCYTES # (AUTO) 0.7 K/uL (0.1-1.0); NEUTROPHILS # (AUTO) 5.9 K/uL (1.8-7.7); NEUTROPHILS % (AUTO) 73.9 % (40.0-77.0); PLATELET COUNT (AUTO) 356 K/uL (130-400); RED BLOOD CELL COUNT(AUTO) 2.65 MIL/uL (4.50-6.20); RED CELL DISTRIBUTION WIDTH 18.2 % (11.0-15.5)
[2022-11-22 04:55] LABS: ALBUMIN 1.4 g/dL (3.5-5.0); BILIRUBIN,TOTAL 0.3 mg/dL (0.2-1.0); CREATININE 0.8 mg/dL (0.5-1.5); POTASSIUM 3.4 mmol/L (3.5-5.1); TOTAL PROTEIN, SERUM 5.6 g/dL (6.0-8.3)
[2022-11-22] MEDS: FENTANYL 1000MCG+NS 100ML IV.SOLN IV SCH ×2 (05:35→17:37)
[2022-11-22] MEDS: POTASSIUM CHLORIDE 10% ELIXIR 20 MEQ/15 ML UDCUP PO PRN ×2 (05:37→07:27)
[2022-11-22] MEDS: INSULIN GLARGINE 100 UNITS/ML 10 ML VIAL SQ SCH ×2 (05:48→20:44)
[2022-11-22] MEDS: INSULIN HUMULIN R 100 UNIT/ML 3ML SQ SCH ×4 (06:19→18:30)
[2022-11-22] MEDS: IPRATROPIUM/ALBUTEROL SULFATE 3 ML SOLUTION IH SCH ×2 (06:29→11:08)
[2022-11-22] MEDS: METOPROLOL TARTRATE 25 MG TAB PO SCH ×2 (07:27→20:47)
[2022-11-22] MEDS: ENOXAPARIN SODIUM 30 MG/0.3 ML SQ SCH ×2 (07:27→20:45)
[2022-11-22] MEDS: FAMOTIDINE 20MG VIAL IV SCH ×2 (07:27→20:41)
[2022-11-22] MEDS: AMIODARONE 200 MG TABLET PO SCH (07:27)
[2022-11-22] MEDS: POTASSIUM CHLORIDE 20MEQ/100ML 100 ML IV PRN (07:27)
[2022-11-22] MEDS: 0.9%NACL 10ML VIAL IV SCH ×2 (07:27→20:42)
[2022-11-22] MEDS: SODIUM HYPOCHLORITE 0.25% [HALF STRENGTH] 473 ML TOPICAL SOLN TP SCH ×2 (07:28→20:42)
[2022-11-22] MEDS: AMIODARONE 900MG VIAL 540 MG in DEXTROSE 5%-WATER 300 ML IV SCH (07:37)
[2022-11-22] MEDS: DEXMEDETOMIDINE 400MCG/NS100ML IV SCH ×3 (13:03→20:43)
[2022-11-22] MEDS ORDERED: POLYETHYLENE GLYCOL 3350 17 GM POWD.PACK PO ONE (15:30)
[2022-11-22] MEDS ORDERED: LACTULOSE 20 GM/30 ML UDCUP PO ONE (15:30)
[2022-11-22] MEDS: VANCOMYCIN 1.5 GM/250 ML BAG 250 ML IV SCH (17:26)
[2022-11-22] MEDS: ARTIFICIAL TEARS 3.5 GM OINTMENT OU SCH (20:42)
[2022-11-23] VITALS (51 sets, daily range): BP systolic 90–153; BP diastolic 40–75; PULSE 61–148; RESP 15–53; TEMP 100.5; O2SAT 96–100
[2022-11-23] MEDS: INSULIN HUMULIN R 100 UNIT/ML 3ML SQ SCH ×2 (12:14→18:00)
[2022-11-23] MEDS: ZOSYN 3.375GM +NS 50ML IVPB SCH ×2 (12:16→17:34)
[2022-11-23] MEDS: FUROSEMIDE 20MG VIAL IV SCH (13:35)
[2022-11-23] MEDS ORDERED: THIAMINE HCL 100 MG/ML 2ML VIAL IVP ONE (16:00)
[2022-11-23] MEDS ORDERED: ACETAMINOPHEN 650 MG SUPPOSITORY RC PRN (17:00)
[2022-11-23] MEDS ORDERED: LORAZEPAM 2 MG/ML 1 ML VIAL IVP SCH (18:00)
[2022-11-23] MEDS: IPRATROPIUM/ALBUTEROL SULFATE 3 ML SOLUTION IH SCH ×2 (18:24→23:19)
[2022-11-23] MEDS ORDERED: METOPROLOL TARTRATE 1 MG/ML 5ML VIAL IV SCH (18:30)
[2022-11-23] MEDS ORDERED: METOPROLOL TARTRATE 1 MG/ML 5ML VIAL IV ONE ×2 (18:50→18:55)
[2022-11-23] MEDS: CHLORHEXIDINE GLUCONATE 473 ML MOUTHWASH MM SCH ×4 (20:00→21:00)
[2022-11-23] MEDS: ENOXAPARIN SODIUM 30 MG/0.3 ML SQ SCH ×2 (20:26→20:34)
[2022-11-23] MEDS: INSULIN GLARGINE 100 UNITS/ML 10 ML VIAL SQ SCH ×2 (20:28→21:00)
[2022-11-23] MEDS: 0.9%NACL 10ML VIAL IV SCH ×2 (20:28→20:33)
[2022-11-23] MEDS: AMIODARONE 200 MG TABLET PO SCH (20:29)
[2022-11-23] MEDS: FAMOTIDINE 20MG VIAL IV SCH ×2 (20:29→20:33)
[2022-11-23] MEDS: POLYETHYLENE GLYCOL 3350 17 GM POWD.PACK PO SCH (20:29)
[2022-11-23] MEDS: HONEY 1 APPL/ML TUBE TP SCH (20:30)
[2022-11-23] MEDS: SODIUM HYPOCHLORITE 0.25% [HALF STRENGTH] 473 ML TOPICAL SOLN TP SCH ×2 (20:30→20:35)
[2022-11-23] MEDS: AMIODARONE 900MG VIAL 540 MG in DEXTROSE 5%-WATER 300 ML IV SCH (20:32)
[2022-11-23] MEDS: VANCOMYCIN 1.5 GM/250 ML BAG 250 ML IV SCH (20:33)
[2022-11-23] MEDS: ARTIFICIAL TEARS 3.5 GM OINTMENT OU SCH (21:00)
[2022-11-23] MEDS: METOPROLOL TARTRATE 25 MG TAB PO SCH (21:00)
[2022-11-23] MEDS: DEXMEDETOMIDINE 400MCG/NS100ML IV SCH (22:29)
[2022-11-23 22:43] LABS: ABG BASE EXCESS 5.7 mmol/L (-2.0-3.0); ABG HCO3 29.4 mmol/L (21.0-28.0); ABG OXYGEN SATURATION 95.9 % (95.0-99.0); ABG PCO2 39 mmHg (35-48); ABG PH 7.497 (7.35-7.450); CARBON MONOXIDE 0.2; HHb 4.1; PO2, ARTERIAL BG 83.8 mmHg (83.0-108.0); VENT MODE, BG CAFM (ROOM AIR)
[2022-11-24] VITALS (39 sets, daily range): BP systolic 89–170; BP diastolic 50–89; PULSE 70–100; RESP 18–77; O2SAT 95–100
[2022-11-24] MEDS: CHLORHEXIDINE GLUCONATE 473 ML MOUTHWASH MM SCH ×3 (02:00→14:00)
[2022-11-24] MEDS: DEXMEDETOMIDINE 400MCG/NS100ML IV SCH (04:21)
[2022-11-24] MEDS: FUROSEMIDE 20MG VIAL IV SCH ×2 (04:23→14:49)
[2022-11-24] MEDS: ZOSYN 3.375GM +NS 50ML IVPB SCH ×3 (04:23→17:34)
[2022-11-24 04:30] LABS: BASOPHILS # (AUTO) 0.04 K/uL (0.00-0.20); BASOPHILS % (AUTO) 0.2 % (0.0-5.0); EOSINOPHILS # (AUTO) 0.12 K/uL (0.00-0.70); EOSINOPHILS % (AUTO) 0.7 % (0.0-8.0); HEMATOCRIT 23.8 % (42-54); IMMATURE GRANULOCYTE ABSOLUTE 0.06 K/uL (0-1); LYMPHOCYTES # (AUTO) 1.4 K/uL (1.0-4.8); LYMPHOCYTES % (AUTO) 8.9 % (21.0-51.0); MEAN CORPUSCULAR HEMOGLOBIN 27.8 pg (27.0-33.0); MEAN CORPUSCULAR HGB CONC 30.7 g/dL (32.0-36.0); MEAN CORPUSCULAR VOLUME 90.5 fL (79-99); MONOCYTES # (AUTO) 1.4 K/uL (0.1-1.0); MONOCYTES % (AUTO) 8.6 % (3.0-13.0); NEUTROPHILS % (AUTO) 81.2 % (40.0-77.0); PLATELET COUNT (AUTO) 346 K/uL (130-400); RED BLOOD CELL COUNT(AUTO) 2.63 MIL/uL (4.50-6.20); RED CELL DISTRIBUTION WIDTH 18.1 % (11.0-15.5)
[2022-11-24 04:44] LABS: CREATININE 0.8 mg/dL (0.5-1.5); POTASSIUM 3.2 mmol/L (3.5-5.1)
[2022-11-24] MEDS: IPRATROPIUM/ALBUTEROL SULFATE 3 ML SOLUTION IH SCH ×5 (06:14→23:09)
[2022-11-24] MEDS: INSULIN GLARGINE 100 UNITS/ML 10 ML VIAL SQ SCH ×2 (07:30→22:26)
[2022-11-24] MEDS: POLYETHYLENE GLYCOL 3350 17 GM POWD.PACK PO SCH (09:00)
[2022-11-24] MEDS: MULTIVITAMIN WITH MINERALS TABLET PO SCH (09:02)
[2022-11-24] MEDS: THIAMINE HCL 100 MG/ML 2ML VIAL IVP SCH (09:02)
[2022-11-24] MEDS: 0.9%NACL 10ML VIAL IV SCH (09:02)
[2022-11-24] MEDS: METOPROLOL TARTRATE 25 MG TAB PO SCH ×2 (09:03→22:28)
[2022-11-24] MEDS: AMIODARONE 200 MG TABLET PO SCH (09:03)
[2022-11-24] MEDS: ENOXAPARIN SODIUM 30 MG/0.3 ML SQ SCH ×2 (09:06→22:23)
[2022-11-24] MEDS: SODIUM HYPOCHLORITE 0.25% [HALF STRENGTH] 473 ML TOPICAL SOLN TP SCH ×2 (09:07→22:26)
[2022-11-24] MEDS: FAMOTIDINE 20MG VIAL IV SCH (09:15)
[2022-11-24] MEDS: POTASSIUM CHLORIDE 20MEQ/100ML 100 ML IV PRN (10:28)
[2022-11-24] MEDS: LIDOCAINE 4% ADH..PATCH TP SCH (11:05)
[2022-11-24] MEDS: INSULIN HUMULIN R 100 UNIT/ML 3ML SQ SCH ×3 (12:00→17:42)
[2022-11-24] MEDS: GABAPENTIN 100 MG CAPSULE PO SCH ×2 (14:50→22:25)
[2022-11-24] MEDS: CILOSTAZOL 100 MG TAB PO SCH (16:29)
[2022-11-24] MEDS ORDERED: NON-FORMULARY MEDICATION 1 EACH (Cilostazol 50 MG) PO SCH (16:30)
[2022-11-24] MEDS: VANCOMYCIN 1.5 GM/250 ML BAG 250 ML IV SCH (17:40)
[2022-11-24] MEDS: HONEY 1 APPL/ML TUBE TP SCH (18:00)
[2022-11-24] MEDS: ARTIFICIAL TEARS 3.5 GM OINTMENT OU SCH (21:00)
[2022-11-24] MEDS ORDERED: PREGABALIN 200 MG PO SCH (21:00)
[2022-11-24] MEDS: ACETAMINOPHEN 325 MG TAB PO PRN (22:24)
[2022-11-24] MEDS: FAMOTIDINE 20MG TAB PO SCH (22:25)
[2022-11-24] MEDS: PREGABALIN 100 MG CAPSULE PO SCH (22:25)
[2022-11-25] VITALS (12 sets, daily range): BP systolic 106–165; BP diastolic 70–85; PULSE 67–100; RESP 18–22; O2SAT 97–98
[2022-11-25] MEDS: ZOSYN 3.375GM +NS 50ML IVPB SCH (01:21)
[2022-11-25] MEDS: FUROSEMIDE 20MG VIAL IV SCH (01:21)
[2022-11-25] MEDS: INSULIN HUMULIN R 100 UNIT/ML 3ML SQ SCH ×4 (01:25→16:39)
[2022-11-25 03:46] LABS: CREATININE 1.7 mg/dL (0.5-1.5); HEMATOCRIT 24.8 % (42-54); MEAN CORPUSCULAR HEMOGLOBIN 28.4 pg (27.0-33.0); MEAN CORPUSCULAR HGB CONC 31.9 g/dL (32.0-36.0); MEAN CORPUSCULAR VOLUME 89.2 fL (79-99); RED BLOOD CELL COUNT(AUTO) 2.78 MIL/uL (4.50-6.20); RED CELL DISTRIBUTION WIDTH 17.9 % (11.0-15.5); WHITE BLOOD COUNT (AUTO) 15.8 K/uL (4.8-10.8)
[2022-11-25 03:48] LABS: POTASSIUM 2.8 mmol/L (3.5-5.1)
[2022-11-25] MEDS: POTASSIUM CHLORIDE 20MEQ/100ML 100 ML IV PRN (04:32)
[2022-11-25] MEDS: ACETAMINOPHEN 325 MG TAB PO PRN ×2 (05:59→21:36)
[2022-11-25] MEDS: IPRATROPIUM/ALBUTEROL SULFATE 3 ML SOLUTION IH SCH ×4 (07:03→23:39)
[2022-11-25] MEDS ORDERED: LIDOCAINE 4% ADH..PATCH TP SCH (09:00)
[2022-11-25] MEDS ORDERED: FENOFIBRATE NANOCRYSTALLIZED 48 MG TAB PO SCH (09:00)
[2022-11-25] MEDS: CLOPIDOGREL 75MG TAB PO SCH (09:10)
[2022-11-25] MEDS: MULTIVITAMIN WITH MINERALS TABLET PO SCH (09:10)
[2022-11-25] MEDS: CILOSTAZOL 100 MG TAB PO SCH ×2 (09:11→16:36)
[2022-11-25] MEDS: ASPIRIN 81MG CHEW TAB PO SCH (09:11)
[2022-11-25] MEDS: FAMOTIDINE 20MG TAB PO SCH (09:11)
[2022-11-25] MEDS: PREGABALIN 100 MG CAPSULE PO SCH (09:12)
[2022-11-25] MEDS: METOPROLOL TARTRATE 25 MG TAB PO SCH ×2 (09:12→21:35)
[2022-11-25] MEDS: FUROSEMIDE 20 MG TABLET PO SCH (09:13)
[2022-11-25] MEDS: GABAPENTIN 100 MG CAPSULE PO SCH ×3 (09:14→21:35)
[2022-11-25] MEDS: LOSARTAN 25 MG TABLET PO SCH (09:14)
[2022-11-25] MEDS: AMIODARONE 200 MG TABLET PO SCH (09:14)
[2022-11-25] MEDS: THIAMINE HCL 100 MG/ML 2ML VIAL IVP SCH (09:15)
[2022-11-25] MEDS: POLYETHYLENE GLYCOL 3350 17 GM POWD.PACK PO SCH (09:15)
[2022-11-25] MEDS: LIDOCAINE 4% ADH..PATCH TP SCH (09:16)
[2022-11-25] MEDS: ENOXAPARIN SODIUM 30 MG/0.3 ML SQ SCH ×2 (09:16→21:34)
[2022-11-25] MEDS: INSULIN GLARGINE 100 UNITS/ML 10 ML VIAL SQ SCH ×2 (09:33→22:00)
[2022-11-25] MEDS: SODIUM HYPOCHLORITE 0.25% [HALF STRENGTH] 473 ML TOPICAL SOLN TP SCH ×2 (10:26→21:40)
[2022-11-25] MEDS: POTASSIUM CHLORIDE 10% ELIXIR 20 MEQ/15 ML UDCUP PO PRN ×5 (10:28→18:29)
[2022-11-25] MEDS: HONEY 1 APPL/ML TUBE TP SCH (16:35)
[2022-11-25] MEDS: AMOX/CLAV 875/125MG TAB PO SCH (21:34)
[2022-11-25] MEDS: AZITHROMYCIN 250 MG TABLET PO SCH (21:35)
[2022-11-25] MEDS: PREGABALIN 75 MG CAPSULE PO SCH (21:36)
[2022-11-25] MEDS: ARTIFICIAL TEARS 3.5 GM OINTMENT OU SCH (21:59)
[2022-11-26] VITALS (13 sets, daily range): BP systolic 116–160; BP diastolic 59–78; PULSE 55–94; RESP 18–22; O2SAT 97–99
[2022-11-26] MEDS: INSULIN HUMULIN R 100 UNIT/ML 3ML SQ SCH ×4 (06:00→17:24)
[2022-11-26] MEDS: IPRATROPIUM/ALBUTEROL SULFATE 3 ML SOLUTION IH SCH ×3 (07:23→19:42)
[2022-11-26] MEDS: INSULIN GLARGINE 100 UNITS/ML 10 ML VIAL SQ SCH ×2 (07:30→21:21)
[2022-11-26] MEDS: CILOSTAZOL 100 MG TAB PO SCH ×2 (07:43→17:20)
[2022-11-26 09:09] LABS: HEMATOCRIT 28.3 % (42-54); MEAN CORPUSCULAR HEMOGLOBIN 27.8 pg (27.0-33.0); MEAN CORPUSCULAR HGB CONC 30.4 g/dL (32.0-36.0); MEAN CORPUSCULAR VOLUME 91.6 fL (79-99); RED BLOOD CELL COUNT(AUTO) 3.09 MIL/uL (4.50-6.20); WHITE BLOOD COUNT (AUTO) 12.7 K/uL (4.8-10.8)
[2022-11-26 09:16] LABS: POTASSIUM 3.4 mmol/L (3.5-5.1)
[2022-11-26 09:43] LABS: PLATELET COUNT (AUTO) 701 K/uL (130-400)
[2022-11-26] MEDS: ENOXAPARIN SODIUM 30 MG/0.3 ML SQ SCH ×2 (10:26→21:13)
[2022-11-26] MEDS: PREGABALIN 75 MG CAPSULE PO SCH ×2 (10:27→21:11)
[2022-11-26] MEDS: LOSARTAN 25 MG TABLET PO SCH (10:27)
[2022-11-26] MEDS: FENOFIBRATE NANOCRYSTALLIZED 48 MG TAB PO SCH (10:28)
[2022-11-26] MEDS: FUROSEMIDE 20 MG TABLET PO SCH (10:28)
[2022-11-26] MEDS: FAMOTIDINE 20MG TAB PO SCH (10:28)
[2022-11-26] MEDS: AMOX/CLAV 875/125MG TAB PO SCH ×2 (10:28→21:12)
[2022-11-26] MEDS: ASPIRIN 81MG CHEW TAB PO SCH (10:30)
[2022-11-26 10:32] LABS: PLATELET MORPHOLOGY COMMENT MARKED INCREASE
[2022-11-26] MEDS: POLYETHYLENE GLYCOL 3350 17 GM POWD.PACK PO SCH (10:32)
[2022-11-26] MEDS: CLOPIDOGREL 75MG TAB PO SCH (10:32)
[2022-11-26] MEDS: METOPROLOL TARTRATE 25 MG TAB PO SCH ×2 (10:32→21:10)
[2022-11-26] MEDS: LIDOCAINE 4% ADH..PATCH TP SCH (10:34)
[2022-11-26] MEDS: MULTIVITAMIN WITH MINERALS TABLET PO SCH (10:34)
[2022-11-26] MEDS: AMIODARONE 200 MG TABLET PO SCH (10:35)
[2022-11-26] MEDS: GABAPENTIN 300 MG CAPSULE PO SCH ×3 (10:38→21:11)
[2022-11-26] MEDS: SODIUM HYPOCHLORITE 0.25% [HALF STRENGTH] 473 ML TOPICAL SOLN TP SCH ×2 (10:39→21:14)
[2022-11-26] MEDS: ACETAMINOPHEN 325 MG TAB PO PRN (10:39)
[2022-11-26] MEDS: POTASSIUM CHLORIDE 10% ELIXIR 20 MEQ/15 ML UDCUP PO PRN ×2 (12:39→14:12)
[2022-11-26] MEDS: HONEY 1 APPL/ML TUBE TP SCH (17:25)
[2022-11-26] MEDS: AZITHROMYCIN 250 MG TABLET PO SCH (21:11)
[2022-11-27] VITALS (8 sets, daily range): BP systolic 105–159; BP diastolic 55–89; PULSE 70–97; RESP 18–20; O2SAT 98–99
[2022-11-27] MEDS: ARTIFICIAL TEARS 3.5 GM OINTMENT OU SCH (00:27)
[2022-11-27] MEDS: ACETAMINOPHEN 325 MG TAB PO PRN (00:40)
[2022-11-27] MEDS: IPRATROPIUM/ALBUTEROL SULFATE 3 ML SOLUTION IH SCH ×3 (04:55→11:50)
[2022-11-27] MEDS: INSULIN HUMULIN R 100 UNIT/ML 3ML SQ SCH ×3 (06:00→12:00)
[2022-11-27] MEDS: CILOSTAZOL 100 MG TAB PO SCH (06:59)
[2022-11-27] MEDS: INSULIN GLARGINE 100 UNITS/ML 10 ML VIAL SQ SCH (07:24)
[2022-11-27] MEDS ORDERED: PREGABALIN 75 MG CAPSULE ONE (08:36)
[2022-11-27] MEDS: MULTIVITAMIN WITH MINERALS TABLET PO SCH (08:37)
[2022-11-27] MEDS: POLYETHYLENE GLYCOL 3350 17 GM POWD.PACK PO SCH (08:37)
[2022-11-27] MEDS: AMOX/CLAV 875/125MG TAB PO SCH (08:37)
[2022-11-27] MEDS: FAMOTIDINE 20MG TAB PO SCH (08:38)
[2022-11-27] MEDS: GABAPENTIN 300 MG CAPSULE PO SCH (08:38)
[2022-11-27] MEDS: FUROSEMIDE 20 MG TABLET PO SCH (08:38)
[2022-11-27] MEDS: LOSARTAN 25 MG TABLET PO SCH (08:38)
[2022-11-27] MEDS: FENOFIBRATE NANOCRYSTALLIZED 48 MG TAB PO SCH (08:38)
[2022-11-27] MEDS: CLOPIDOGREL 75MG TAB PO SCH (08:38)
[2022-11-27] MEDS: METOPROLOL TARTRATE 25 MG TAB PO SCH (08:39)
[2022-11-27] MEDS: ENOXAPARIN SODIUM 30 MG/0.3 ML SQ SCH (08:40)
[2022-11-27] MEDS: ASPIRIN 81MG CHEW TAB PO SCH (08:41)
[2022-11-27] MEDS: AMIODARONE 200 MG TABLET PO SCH (08:41)
[2022-11-27] MEDS: PREGABALIN 75 MG CAPSULE PO SCH (08:41)
[2022-11-27] MEDS: LIDOCAINE 4% ADH..PATCH TP SCH (08:47)
[2022-11-27] MEDS: SODIUM HYPOCHLORITE 0.25% [HALF STRENGTH] 473 ML TOPICAL SOLN TP SCH (08:49)
== END 2022-11-27 14:17 | DRG 870 ==
LOC: EDH 08:25 → EDHIP 11:24 → 2CH 11-19 10:51 → 2AH 11-24 16:50
PROVIDERS: ADMIT Hospitalist; ATTEND Hospitalist
PROC: 5A1955Z Respiratory Ventilation, Greater than 96 Consecutive Hours (ICD-10-PCS; principal; 2022-11-18)
PROC: 0BH17EZ Insertion of Endotracheal Airway into Trachea, Via Natural or Artificial Opening (ICD-10-PCS; 2022-11-18)
PROC: 02HV33Z Insertion of Infusion Device into Superior Vena Cava, Percutaneous Approach (ICD-10-PCS; 2022-11-19)
DX: A41.9 Sepsis, unspecified organism (principal); L89.154 Pressure ulcer of sacral region, stage 4; J18.9 Pneumonia, unspecified organism; J80 Acute respiratory distress syndrome; R65.21 Severe sepsis with septic shock; I50.32 Chronic diastolic (congestive) heart failure; E46 Unspecified protein-calorie malnutrition; F10.939 Alcohol use, unspecified with withdrawal, unspecified; G93.40 Encephalopathy, unspecified; Z20.822 Contact with and (suspected) exposure to COVID-19; E11.65 Type 2 diabetes mellitus with hyperglycemia; E11.51 Type 2 diabetes mellitus with diabetic peripheral angiopathy without gangrene; E83.42 Hypomagnesemia; I11.0 Hypertensive heart disease with heart failure; D75.839 Thrombocytosis, unspecified; D64.9 Anemia, unspecified; E78.00 Pure hypercholesterolemia, unspecified; F43.10 Post-traumatic stress disorder, unspecified; I48.91 Unspecified atrial fibrillation; Z79.01 Long term (current) use of anticoagulants; Z82.49 Family history of ischemic heart disease and other diseases of the circulatory system; Z83.3 Family history of diabetes mellitus; Z87.891 Personal history of nicotine dependence; Z89.611 Acquired absence of right leg above knee; Z89.612 Acquired absence of left leg above knee
CPT/HCPCS: 31500; 36415; 36600; 71045; 71250; 80048; 80053; 80202; 81001; 82435; 82803; 82947; 82948; 83036; 83605; 83735; 83880; 84132; 84145; 84295; 84484; 85014; 85018; 85025; 85027; 85610; 85730; 87040; 87071; 87088; 87205; 87426; 87804; 92610; 93005; 93306; 93971; 94002; 94003; 94640; 94664; 97039; A6250; C1751; C1894; G0378; J0282; J1650; J1815; J1940; J2060; J2250; J2371; J2405; J2543; J3010; J3370; J3411; J3475; J3480; J3490; J7050; J7060; J7070; A6213; A6214; A9900

== ENCOUNTER 2023-12-09 14:47 | Observation (INO) | payer OTHER ==
[~2023-12-09] VITALS: Ht 172.7 cm; Wt 74.8 kg
[~2023-12-09 14:47] MED LIST changes: +AEC81 PO; +LOSA50TA64 PO; +METF-444 PO; +METO-391 PO; +PREG200C29 PO; +TORS20TA4 PO
[2023-12-09] MEDS ORDERED: MORPHINE 2 MG SYG IVP SCH (16:00)
[2023-12-09] MEDS ORDERED: acetaMINOPHEN 650 MG SUPPOSITORY RC PRN (16:00)
[2023-12-09] MEDS ORDERED: ONDANSETRON 4MG INJ IVP PRN (16:00)
[2023-12-09] MEDS ORDERED: BisaCODYL 10 MG SUPP.RECT RC PRN (16:00)
[2023-12-09] MEDS ORDERED: MORPHINE 2 MG SYG IVP PRN (16:00)
[2023-12-09] MEDS: LORazepam 2 MG/ML 1 ML VIAL IVP PRN (16:59)
[2023-12-09] MEDS ORDERED: GLYCOPYRROLATE 0.2 MG/ML 5 ML VIAL IVP PRN (19:30)
== END 2023-12-09 22:35 ==
LOC: INTOOBSV 14:47 → 4DH 14:47
PROVIDERS: ADMIT Internal Medicine; ATTEND Internal Medicine
DX: R62.7 Adult failure to thrive (principal); E11.51 Type 2 diabetes mellitus with diabetic peripheral angiopathy without gangrene; I70.229 Atherosclerosis of native arteries of extremities with rest pain, unspecified extremity; I74.5 Embolism and thrombosis of iliac artery; M62.82 Rhabdomyolysis; E11.649 Type 2 diabetes mellitus with hypoglycemia without coma; I11.0 Hypertensive heart disease with heart failure; I50.32 Chronic diastolic (congestive) heart failure; E78.5 Hyperlipidemia, unspecified; E46 Unspecified protein-calorie malnutrition; E87.1 Hypo-osmolality and hyponatremia; E87.8 Other disorders of electrolyte and fluid balance, not elsewhere classified; N17.9 Acute kidney failure, unspecified; L98.429 Non-pressure chronic ulcer of back with unspecified severity; E86.0 Dehydration; D64.9 Anemia, unspecified; I48.91 Unspecified atrial fibrillation; F43.10 Post-traumatic stress disorder, unspecified; Z79.84 Long term (current) use of oral hypoglycemic drugs; Z68.25 Body mass index [BMI] 25.0-25.9, adult; Z89.611 Acquired absence of right leg above knee
CPT/HCPCS: 96374; G0378 ×7; J2060; 59025; J2270